=== PATIENT | female | born 1945 | race Caucasian/White ===

== ENCOUNTER 2019-01-31 07:55 | Outpatient (RCR) | payer MEDICARE, SELFPAY | END 2019-02-22 00:01 | LOC: LAB 07:55 | PROVIDERS: Family Provider Family Medicine; Visit Provider Family Medicine | DX: I82.409 Acute embolism and thrombosis of unspecified deep veins of unspecified lower extremity (principal); Z79.01 Long term (current) use of anticoagulants | CPT/HCPCS: 85610 ==

== ENCOUNTER 2019-02-28 08:30 | Outpatient (CLI) | payer MEDICARE, SELFPAY ==
[2019-02-28 09:25] LABS: INR 3.29 (0.8-1.2)
== END 2019-02-28 08:31 | disposition home or self-care (01) ==
LOC: LAB 08:36
PROVIDERS: Family Provider Family Medicine; PCP Family Medicine; Visit Provider Family Medicine
DX: I82.4Z9 Acute embolism and thrombosis of unspecified deep veins of unspecified distal lower extremity (principal)
CPT/HCPCS: 85610

== ENCOUNTER 2019-03-07 08:15 | Outpatient (CLI) | payer MEDICARE, SELFPAY ==
[2019-03-07 09:08] LABS: INR 2.79 (0.8-1.2)
== END 2019-03-07 08:16 | disposition home or self-care (01) ==
LOC: LAB 08:16
PROVIDERS: Family Provider Family Medicine; PCP Family Medicine; Visit Provider Family Medicine
DX: I82.4Z9 Acute embolism and thrombosis of unspecified deep veins of unspecified distal lower extremity (principal)
CPT/HCPCS: 85610

== ENCOUNTER 2019-03-21 08:21 | Outpatient (CLI) | payer MEDICARE, SELFPAY ==
[2019-03-21 08:58] LABS: INR 3.34 (0.8-1.2)
== END 2019-03-21 08:22 | disposition home or self-care (01) ==
LOC: LAB 08:23
PROVIDERS: Family Provider Family Medicine; PCP Family Medicine; Visit Provider Family Medicine
DX: I82.409 Acute embolism and thrombosis of unspecified deep veins of unspecified lower extremity (principal)
CPT/HCPCS: 85610

== ENCOUNTER 2019-03-28 07:50 | Outpatient (CLI) | payer MEDICARE, SELFPAY ==
[2019-03-28 09:03] LABS: INR 1.86 (0.8-1.2)
== END 2019-03-28 07:51 | disposition home or self-care (01) ==
LOC: LAB 07:52
PROVIDERS: Family Provider Family Medicine; PCP Family Medicine; Visit Provider Family Medicine
DX: I82.409 Acute embolism and thrombosis of unspecified deep veins of unspecified lower extremity (principal)
CPT/HCPCS: 85610

== ENCOUNTER 2019-04-11 08:08 | Outpatient (RCR) | payer MEDICARE, SELFPAY ==
[2019-04-04 09:45] LABS: INR 1.96 (0.8-1.2)
[2019-04-11 08:42] LABS: INR 2.41 (0.8-1.2)
== END 2019-04-23 23:59 | disposition home or self-care (01) ==
LOC: LAB 08:08
PROVIDERS: Family Provider Family Medicine; PCP Family Medicine; Visit Provider Family Medicine
DX: I82.409 Acute embolism and thrombosis of unspecified deep veins of unspecified lower extremity (principal)
CPT/HCPCS: 36415; 85610

== ENCOUNTER 2019-04-25 08:14 | Outpatient (CLI) | payer MEDICARE, SELFPAY ==
[2019-04-25 09:31] LABS: INR 2.75 (0.8-1.2)
== END 2019-04-25 08:15 | disposition home or self-care (01) ==
LOC: LAB 08:19
PROVIDERS: Family Provider Family Medicine; PCP Family Medicine; Visit Provider Family Medicine
DX: I82.409 Acute embolism and thrombosis of unspecified deep veins of unspecified lower extremity (principal)
CPT/HCPCS: 36415; 85610

== ENCOUNTER 2019-05-16 08:07 | Outpatient (RCR) | payer MEDICARE, SELFPAY | END 2019-05-24 23:59 | disposition home or self-care (01) | LOC: LAB 08:07 | PROVIDERS: Family Provider Family Medicine; PCP Family Medicine; Visit Provider Family Medicine | DX: I82.409 Acute embolism and thrombosis of unspecified deep veins of unspecified lower extremity (principal); Z79.01 Long term (current) use of anticoagulants | CPT/HCPCS: 85610 ==

== ENCOUNTER 2019-06-20 08:08 | Outpatient (RCR) | payer MEDICARE, SELFPAY | END 2019-06-23 23:59 | disposition home or self-care (01) | LOC: LAB 08:08 | PROVIDERS: Family Provider Family Medicine; PCP Family Medicine; Visit Provider Family Medicine | DX: I82.409 Acute embolism and thrombosis of unspecified deep veins of unspecified lower extremity (principal); Z79.01 Long term (current) use of anticoagulants | CPT/HCPCS: 36415; 85610 ==

== ENCOUNTER 2019-07-19 07:45 | Outpatient (RCR) | payer MEDICARE, SELFPAY ==
[2019-07-19 08:36] LABS: INR 2.33 (0.8-1.2)
== END 2019-07-24 23:59 | disposition home or self-care (01) ==
LOC: LAB 07:45
PROVIDERS: PCP Family Medicine; Visit Provider Family Medicine
DX: I82.409 Acute embolism and thrombosis of unspecified deep veins of unspecified lower extremity (principal); Z79.01 Long term (current) use of anticoagulants
CPT/HCPCS: 36415; 85610

== ENCOUNTER 2019-08-15 08:13 | Outpatient (RCR) | payer MEDICARE, SELFPAY ==
[2019-08-15 09:05] LABS: INR 2.64 (0.8-1.2)
== END 2019-08-23 23:59 | disposition home or self-care (01) ==
LOC: LAB 08:13
PROVIDERS: PCP Family Medicine; Visit Provider Family Medicine
DX: I82.409 Acute embolism and thrombosis of unspecified deep veins of unspecified lower extremity (principal); Z79.01 Long term (current) use of anticoagulants
CPT/HCPCS: 85610

== ENCOUNTER 2019-09-19 07:58 | Outpatient (RCR) | payer MEDICARE, SELFPAY ==
[2019-09-12 11:21] LABS: INR 6.31 (0.8-1.2)
[2019-09-15 08:54] LABS: INR 3.36 (0.8-1.2)
[2019-09-19 09:06] LABS: INR 1.55 (0.8-1.2)
== END 2019-09-23 23:59 | disposition home or self-care (01) ==
LOC: LAB 07:58
PROVIDERS: PCP Family Medicine; Visit Provider Family Medicine
DX: I82.409 Acute embolism and thrombosis of unspecified deep veins of unspecified lower extremity (principal)
CPT/HCPCS: 36415; 85610

== ENCOUNTER 2019-10-24 08:08 | Outpatient (RCR) | payer MEDICARE, SELFPAY ==
[2019-10-03 09:09] LABS: INR 1.28 (0.8-1.2)
[2019-10-24 08:31] LABS: Hematocrit 40.6 % (37.0-47.0); Mean Corpuscular Hemoglobin 31.1 pg (28.0-34.0); Mean Corpuscular Volume 97.1 fL (81-99); Mean Platelet Volume 11.2 fL (7.4-10.4); Platelet Count 285 10^3/cmm (130-400); Red Blood Count 4.18 10^6/uL (4.1-5.3); Red Cell Distribution Width 13.2 % (12.1-15.1); White Blood Count 8.2 10^3/uL (4.0-10.0)
[2019-10-24 08:41] LABS: Absolute Eosinophils 0.2 10^3/cmm (0.0-0.7); Absolute Segmented Neutrophil 5.2 10/cmm (1.6-7.1); Band Neutrophils Absolute 0.1 10^3/cmm (0.0-1.2); Eosinophils 3 %; INR 2.16 (0.8-1.2); Lymphocytes 26 %; Monocytes Absolute 0.6 10^3/cmm (0.1-0.6); Segmented Neutrophils 63 %; Total Cells Counted 100 (0-100)
[2019-10-24 08:43] LABS: Absolute Neutrophil 5.2 10^3/cmm (1.4-6.5); Platelet Estimate Normal (Normal)
[2019-10-24 08:56] LABS: Alanine Aminotransferase 14 U/L (0-33); Albumin Level 3.5 g/dL (3.5-5.2); Alkaline Phosphatase 81 IU/L (35-105); Aspartate Amino Transferase 9 U/L (0-32); Blood Urea Nitrogen 23 mg/dL (8-23); Calcium 9.4 mg/dL (8.5-10.5); Carbon Dioxide 27 mmol/L (22-29); Chloride 107 mmol/L (98-107); Chol HDL Ratio 3.22 mg/dL (0.0-4.40); Cholesterol 148 mg/dL (0-200); Glucose 98 mg/dL (65-115); HDL Cholesterol 46 mg/dL (60-100); LDL Cholesterol Calculated 66 mg/dL (50-129); Osmolality Calculated 291 mOsm/kg (285-295); Sodium 142 mmol/L (136-145); Thyroid Stimulating Hormone 2.03 uIU/mL (0.27-4.20); Total Bilirubin 0.5 mg/dL (0.15-1.2); Total Protein 6.5 g/dL (6.6-8.7); Triglycerides 182 mg/dL (0-150); VLDL Cholestrol Calculation 36 mg/dL (0-30)
== END 2019-10-24 23:59 | disposition home or self-care (01) ==
LOC: LAB 08:08
PROVIDERS: PCP Family Medicine; Visit Provider Family Medicine
DX: I82.409 Acute embolism and thrombosis of unspecified deep veins of unspecified lower extremity (principal); I10 Essential (primary) hypertension
CPT/HCPCS: 36415; 80053; 80061; 84443; 85007; 85027; 85610

== ENCOUNTER 2019-11-08 07:59 | Outpatient (RCR) | payer MEDICARE, SELFPAY ==
[2019-11-01 09:42] LABS: INR 1.51 (0.8-1.2)
== END 2019-11-23 23:59 | disposition home or self-care (01) ==
LOC: LAB 07:59
PROVIDERS: PCP Family Medicine; Visit Provider Family Medicine
DX: I82.409 Acute embolism and thrombosis of unspecified deep veins of unspecified lower extremity (principal)
CPT/HCPCS: 85610

== ENCOUNTER 2019-12-20 07:53 | Outpatient (RCR) | payer MEDICARE, SELFPAY ==
[2019-11-28 12:11] LABS: INR 1.87 (0.8-1.2)
[2019-12-13 08:54] LABS: INR 1.64 (0.8-1.2)
[2019-12-20 08:31] LABS: INR 1.91 (0.8-1.2)
== END 2019-12-24 23:59 | disposition home or self-care (01) ==
LOC: LAB 07:53
PROVIDERS: PCP Family Medicine; Visit Provider Family Medicine
DX: Z79.01 Long term (current) use of anticoagulants (principal); D68.51 Activated protein C resistance; Z86.718 Personal history of other venous thrombosis and embolism
CPT/HCPCS: 36415; 85610

== ENCOUNTER 2020-01-17 08:00 | Outpatient (RCR) | payer MEDICARE, SELFPAY ==
[2019-12-27 09:04] LABS: INR 2.24 (0.8-1.2)
[2020-01-03 08:57] LABS: INR 1.77 (0.8-1.2)
[2020-01-10 09:26] LABS: INR 2.35 (0.8-1.2)
[2020-01-17 08:51] LABS: INR 2.36 (0.8-1.2)
== END 2020-01-23 23:59 | disposition home or self-care (01) ==
LOC: LAB 08:00
PROVIDERS: PCP Family Medicine; Visit Provider Family Medicine
DX: D68.51 Activated protein C resistance (principal); Z79.01 Long term (current) use of anticoagulants; Z86.718 Personal history of other venous thrombosis and embolism
CPT/HCPCS: 36415; 85610

== ENCOUNTER 2020-02-07 08:10 | Outpatient (RCR) | payer MEDICARE, SELFPAY ==
[2020-02-07 08:47] LABS: INR 2.37 (0.8-1.2)
== END 2020-02-23 23:59 | disposition home or self-care (01) ==
LOC: LAB 08:10
PROVIDERS: PCP Family Medicine; Visit Provider Family Medicine
DX: D68.51 Activated protein C resistance (principal); Z86.718 Personal history of other venous thrombosis and embolism; Z79.01 Long term (current) use of anticoagulants
CPT/HCPCS: 36415; 85610

== ENCOUNTER 2020-03-06 08:07 | Outpatient (RCR) | payer MEDICARE, SELFPAY ==
[2020-03-06 09:25] LABS: INR 2.51 (0.8-1.2)
== END 2020-03-25 23:59 | disposition home or self-care (01) ==
LOC: LAB 08:07
PROVIDERS: PCP Nurse Practitioner Family; Visit Provider Family Medicine
DX: D68.51 Activated protein C resistance (principal); Z79.01 Long term (current) use of anticoagulants; Z86.718 Personal history of other venous thrombosis and embolism
CPT/HCPCS: 85610

== ENCOUNTER 2020-04-02 08:54 | Outpatient (RCR) | payer MEDICARE, SELFPAY ==
[2020-04-02 10:07] LABS: INR 3.09 (0.8-1.2)
== END 2020-04-22 23:59 | disposition home or self-care (01) ==
LOC: LAB 08:54
PROVIDERS: PCP Nurse Practitioner Family; Visit Provider Family Medicine
DX: D68.51 Activated protein C resistance (principal); Z79.01 Long term (current) use of anticoagulants; Z86.718 Personal history of other venous thrombosis and embolism
CPT/HCPCS: 85610

== ENCOUNTER 2020-05-22 08:00 | Outpatient (RCR) | payer MEDICARE, SELFPAY ==
[2020-04-23 08:51] LABS: Basophils % 0.6 %; Eosinophils # 0.1 10^3/uL (0.0-0.8); Eosinophils % 2.1 %; Hematocrit 42.4 % (37.0-47.0); Hemoglobin 13.6 g/dL (11.5-15.3); Lymphocytes # 2.3 10^3/uL (0.8-4.8); Lymphocytes % 33.1 %; Mean Corpuscular HGB Conc 32.1 g/dL (30.0-36.0); Mean Corpuscular Hemoglobin 30.6 pg (28.0-34.0); Mean Corpuscular Volume 95.3 fL (81-99); Mean Platelet Volume 12.1 fL (7.4-10.4); Monocytes # 0.5 10^3/uL (0.2-0.9); Monocytes % 7.2 %; Neutrophils # 3.87 10^3/uL (1.8-7.7); Neutrophils % 56.9 %; Nucleated Red Blood Cells % 0 %; Platelet Count 246 10^3/cmm (130-400); Red Blood Count 4.45 10^6/uL (4.1-5.3); Red Cell Distribution Width 13.2 % (12.1-15.1); White Blood Count 6.8 10^3/uL (4.0-10.0)
[2020-04-23 09:10] LABS: INR 2.76 (0.8-1.2)
[2020-04-23 09:29] LABS: Anion Gap 11.9 (5-19); Blood Urea Nitrogen 21 mg/dL (8-23); Calcium 9.5 mg/dL (8.5-10.5); Carbon Dioxide 28 mmol/L (22-29); Chloride 106 mmol/L (98-107); Cholesterol 152 mg/dL (0-200); Glucose 102 mg/dL (65-115); HDL Cholesterol 38 mg/dL (60-100); LDL Cholesterol Calculated 63 mg/dL (50-129); LDL HDL Ratio 1.66 RATIO (0.00-3.22); Osmolality Calculated 297 mOsm/kg (285-295); Potassium 3.9 mmol/L (3.5-5.1); Sodium 142 mmol/L (136-145); Thyroid Stimulating Hormone 2.77 uIU/mL (0.27-4.20); Triglycerides 253 mg/dL (0-150)
[2020-05-22 09:26] LABS: INR 3.26 (0.8-1.2)
== END 2020-05-23 23:59 | disposition home or self-care (01) ==
LOC: LAB 08:00
PROVIDERS: PCP Nurse Practitioner Family; Visit Provider Family Medicine
DX: D68.51 Activated protein C resistance (principal); I10 Essential (primary) hypertension; Z86.718 Personal history of other venous thrombosis and embolism; Z79.01 Long term (current) use of anticoagulants
CPT/HCPCS: 36415; 80048; 80061; 84443; 85025; 85610

== ENCOUNTER 2020-06-06 08:01 | Outpatient (RCR) | payer MEDICARE, SELFPAY ==
[2020-06-06 09:01] LABS: INR 2.26 (0.8-1.2)
== END 2020-06-22 23:59 | disposition home or self-care (01) ==
LOC: LAB 08:01
PROVIDERS: PCP Nurse Practitioner Family; Visit Provider Family Medicine
DX: D68.51 Activated protein C resistance (principal); Z86.718 Personal history of other venous thrombosis and embolism; Z79.01 Long term (current) use of anticoagulants
CPT/HCPCS: 85610

== ENCOUNTER 2020-06-08 07:21 | Outpatient (CLI) | payer MEDICARE, SELFPAY ==
--- NOTE | 2020-06-08 07:26 | US_ITS ---
WS: [id number] ULTRASOUND SOFT TISSUES RIGHT axilla HISTORY: AXILLARY LUMP/LOCALIZED SWELLING,MASS LUMP UPPER LIMB COMPARISON: None available. TECHNIQUE: 2-D and color Doppler imaging is submitted. No mass or lymph nodes are noted within the RIGHT axilla as directed by the patient. The area of conc yong is near the posterior proximal humerus. US/US soft tissue/extremity [id number] IMPRESSION: Negative RIGHT axillary ultrasound.
== END 2020-06-08 07:22 | disposition home or self-care (01) ==
LOC: RAD 07:24
PROVIDERS: PCP Nurse Practitioner Family; Visit Provider Nurse Practitioner Family
DX: R22.30 Localized swelling, mass and lump, unspecified upper limb (principal)
CPT/HCPCS: 76882

== ENCOUNTER 2020-07-04 08:07 | Outpatient (RCR) | payer MEDICARE, SELFPAY ==
[2020-07-04 09:05] LABS: INR 2.13 (0.8-1.2)
== END 2020-07-23 23:59 | disposition home or self-care (01) ==
LOC: LAB 08:07
PROVIDERS: PCP Nurse Practitioner Family; Visit Provider Family Medicine
DX: D68.51 Activated protein C resistance (principal); I10 Essential (primary) hypertension; Z86.718 Personal history of other venous thrombosis and embolism; Z79.01 Long term (current) use of anticoagulants
CPT/HCPCS: 36415; 85610

== ENCOUNTER 2020-08-01 08:00 | Outpatient (RCR) | payer MEDICARE, SELFPAY ==
[2020-08-01 08:59] LABS: INR 2.11 (0.8-1.2)
== END 2020-08-22 23:59 | disposition home or self-care (01) ==
LOC: LAB 08:00
PROVIDERS: PCP Nurse Practitioner Family; Visit Provider Family Medicine
DX: I82.409 Acute embolism and thrombosis of unspecified deep veins of unspecified lower extremity (principal); Z79.01 Long term (current) use of anticoagulants
CPT/HCPCS: 36415; 85610

== ENCOUNTER 2020-08-29 07:57 | Outpatient (RCR) | payer MEDICARE, SELFPAY ==
[2020-08-29 08:34] LABS: INR 2.59 (0.8-1.2)
== END 2020-09-22 23:59 | disposition home or self-care (01) ==
LOC: LAB 07:57
PROVIDERS: PCP Nurse Practitioner Family; Visit Provider Family Medicine
DX: I82.409 Acute embolism and thrombosis of unspecified deep veins of unspecified lower extremity (principal); Z79.01 Long term (current) use of anticoagulants
CPT/HCPCS: 36415; 85610

== ENCOUNTER 2020-09-26 08:00 | Outpatient (RCR) | payer MEDICARE, SELFPAY ==
[2020-09-26 09:13] LABS: INR 2.38 (0.8-1.2)
== END 2020-10-23 23:59 | disposition home or self-care (01) ==
LOC: LAB 08:00
PROVIDERS: PCP Nurse Practitioner Family; Visit Provider Family Medicine
DX: I82.409 Acute embolism and thrombosis of unspecified deep veins of unspecified lower extremity (principal)
CPT/HCPCS: 36415; 85610

== ENCOUNTER 2020-11-21 08:02 | Outpatient (RCR) | payer MEDICARE, SELFPAY ==
[2020-10-24 09:15] LABS: INR 2.75 (0.8-1.2)
[2020-11-21 09:03] LABS: INR 2.87 (0.8-1.2)
== END 2020-11-22 23:59 | disposition home or self-care (01) ==
LOC: LAB 08:02
PROVIDERS: PCP Nurse Practitioner Family; Visit Provider Family Medicine
DX: I82.409 Acute embolism and thrombosis of unspecified deep veins of unspecified lower extremity (principal); Z79.01 Long term (current) use of anticoagulants; D68.51 Activated protein C resistance; Z86.718 Personal history of other venous thrombosis and embolism
CPT/HCPCS: 36415; 85610

== ENCOUNTER 2020-12-18 07:59 | Outpatient (RCR) | payer MEDICARE, SELFPAY ==
[2020-12-18 08:43] LABS: INR 2.81 (0.8-1.2)
== END 2020-12-23 23:59 | disposition home or self-care (01) ==
LOC: LAB 07:59
PROVIDERS: PCP Nurse Practitioner Family; Visit Provider Family Medicine
DX: I82.409 Acute embolism and thrombosis of unspecified deep veins of unspecified lower extremity (principal); D68.51 Activated protein C resistance; I10 Essential (primary) hypertension; Z79.01 Long term (current) use of anticoagulants; Z86.718 Personal history of other venous thrombosis and embolism
CPT/HCPCS: 36415; 85610

== ENCOUNTER 2021-01-16 07:39 | Outpatient (RCR) | payer MEDICARE, SELFPAY ==
[2021-01-16 08:22] LABS: Basophils % 0.3 %; Eosinophils # 0.2 10^3/uL (0.0-0.8); Eosinophils % 2.4 %; Hematocrit 40.8 % (37.0-47.0); Hemoglobin 13.4 g/dL (11.5-15.3); Lymphocytes # 2.2 10^3/uL (0.8-4.8); Lymphocytes % 33.7 %; Mean Corpuscular HGB Conc 32.8 g/dL (30.0-36.0); Mean Corpuscular Hemoglobin 31.8 pg (28.0-34.0); Mean Corpuscular Volume 96.9 fl (81-99); Mean Platelet Volume 11.5 fL (7.4-10.4); Monocytes # 0.5 10^3/uL (0.2-0.9); Monocytes % 6.8 %; Neutrophils # 3.71 10^3/uL (1.8-7.7); Neutrophils % 56.5 %; Nucleated Red Blood Cells % 0 %; Platelet Count 260 10^3/cmm (130-400); Red Blood Count 4.21 10^6/uL (4.1-5.3); Red Cell Distribution Width 12.8 % (12.1-15.1); White Blood Count 6.6 10^3/uL (4.0-10.0)
[2021-01-16 08:50] LABS: INR 2.99 (0.8-1.2)
[2021-01-16 09:20] LABS: Chol HDL Ratio 4.33 mg/dL (0.0-4.40); Cholesterol 173 mg/dL (0-200); HDL Cholesterol 40 mg/dL (60-100); LDL Cholesterol Calculated 83 mg/dL (50-129); LDL HDL Ratio 2.08 RATIO (0.00-3.22); Thyroid Stimulating Hormone 2.71 uIU/mL (0.27-4.20); Triglycerides 250 mg/dL (0-150)
[2021-01-16 14:14] LABS: Alanine Aminotransferase 10 U/L (0-33); Alkaline Phosphatase 84 IU/L (35-105); Anion Gap 14.8 (5-19); Aspartate Amino Transferase 10 U/L (0-32); Blood Urea Nitrogen 24 mg/dL (8-23); Calcium 9.1 mg/dL (8.5-10.5); Carbon Dioxide 25 mmol/L (22-29); Chloride 103 mmol/L (98-107); Glucose 115 mg/dL (65-115); Osmolality Calculated 293 mOsm/kg (285-295); Potassium 3.8 mmol/L (3.5-5.1); Sodium 139 mmol/L (136-145); Total Bilirubin 0.3 mg/dL (0.15-1.2)
[2021-01-16 14:47] LABS: Estmated Average Glucose 131; Hemoglobin A1C 6.2 % (4.0-6.0)
== END 2021-01-22 23:59 | disposition home or self-care (01) ==
LOC: LAB 07:39
PROVIDERS: PCP Nurse Practitioner Family; Visit Provider Family Medicine
DX: I82.409 Acute embolism and thrombosis of unspecified deep veins of unspecified lower extremity (principal); D68.51 Activated protein C resistance; I10 Essential (primary) hypertension; Z79.01 Long term (current) use of anticoagulants; Z86.718 Personal history of other venous thrombosis and embolism; Z79.899 Other long term (current) drug therapy
CPT/HCPCS: 36415; 80053; 80061; 83036; 84443; 85025; 85610

== ENCOUNTER 2021-02-18 09:12 | Outpatient (CLI) | payer MEDICARE, SELFPAY | END 2021-02-18 09:13 | disposition home or self-care (01) | LOC: LAB 09:21 | PROVIDERS: PCP Nurse Practitioner Family; Visit Provider Nurse Practitioner Family | DX: Z86.718 Personal history of other venous thrombosis and embolism (principal); D68.51 Activated protein C resistance; Z79.01 Long term (current) use of anticoagulants | CPT/HCPCS: 36415; 85610 ==

== ENCOUNTER 2021-02-27 06:00 | Outpatient (RCR) | payer MEDICARE, SELFPAY | END 2021-03-25 23:59 | disposition home or self-care (01) | LOC: SPT 06:00 | PROVIDERS: PCP Nurse Practitioner Family; Referring Provider Nurse Practitioner Family; Visit Provider Nurse Practitioner Family | DX: S89.92XD Unspecified injury of left lower leg, subsequent encounter (principal); X58.XXXD Exposure to other specified factors, subsequent encounter | CPT/HCPCS: 97110; 97161 ==

== ENCOUNTER 2021-03-18 07:53 | Outpatient (CLI) | payer MEDICARE, SELFPAY ==
[2021-03-18 08:30] LABS: INR 2.51 (0.8-1.2)
== END 2021-03-18 07:54 | disposition home or self-care (01) ==
PROVIDERS: PCP Nurse Practitioner Family; Visit Provider Family Medicine
DX: Z86.718 Personal history of other venous thrombosis and embolism (principal); D68.51 Activated protein C resistance; Z79.01 Long term (current) use of anticoagulants
CPT/HCPCS: 36415; 85610

== ENCOUNTER 2021-03-26 06:00 | Outpatient (RCR) | payer MEDICARE, SELFPAY | END 2021-04-22 23:59 | disposition home or self-care (01) | LOC: SPT 06:00 | PROVIDERS: PCP Nurse Practitioner Family; Referring Provider Nurse Practitioner Family; Visit Provider Nurse Practitioner Family | DX: S89.92XD Unspecified injury of left lower leg, subsequent encounter (principal); X58.XXXD Exposure to other specified factors, subsequent encounter | CPT/HCPCS: 97110 ==

== ENCOUNTER 2021-04-15 08:17 | Outpatient (CLI) | payer MEDICARE, SELFPAY ==
[2021-04-15 09:03] LABS: INR 3.48 (0.8-1.2)
== END 2021-04-15 08:18 | disposition home or self-care (01) ==
LOC: LAB 08:24
PROVIDERS: PCP Nurse Practitioner Family; Visit Provider Nurse Practitioner Family
DX: Z86.718 Personal history of other venous thrombosis and embolism (principal); D68.51 Activated protein C resistance; Z79.01 Long term (current) use of anticoagulants
CPT/HCPCS: 36415; 85610

== ENCOUNTER 2021-04-23 06:00 | Outpatient (RCR) | payer MEDICARE, SELFPAY | END 2021-04-24 23:59 | disposition home or self-care (01) | LOC: SPT 06:00 | PROVIDERS: PCP Nurse Practitioner Family; Referring Provider Nurse Practitioner Family; Visit Provider Nurse Practitioner Family | DX: S89.92XD Unspecified injury of left lower leg, subsequent encounter (principal); X58.XXXD Exposure to other specified factors, subsequent encounter | CPT/HCPCS: 97110 ==

== ENCOUNTER 2021-04-29 08:26 | Outpatient (CLI) | payer MEDICARE, SELFPAY ==
[2021-04-29 09:14] LABS: INR 2.37 (0.8-1.2)
== END 2021-04-29 08:27 | disposition home or self-care (01) ==
LOC: LAB 08:29
PROVIDERS: PCP Nurse Practitioner Family; Visit Provider Family Medicine
DX: Z86.718 Personal history of other venous thrombosis and embolism (principal); D68.51 Activated protein C resistance; Z79.01 Long term (current) use of anticoagulants
CPT/HCPCS: 85610

== ENCOUNTER 2021-05-06 08:02 | Outpatient (CLI) | payer MEDICARE, SELFPAY | END 2021-05-06 08:03 | disposition home or self-care (01) | PROVIDERS: PCP Nurse Practitioner Family; Visit Provider Nurse Practitioner Family | DX: Z86.718 Personal history of other venous thrombosis and embolism (principal); D68.51 Activated protein C resistance; Z79.01 Long term (current) use of anticoagulants | CPT/HCPCS: 85610 ==

== ENCOUNTER 2021-05-20 07:56 | Outpatient (CLI) | payer MEDICARE, SELFPAY ==
[2021-05-20 08:44] LABS: INR 2.31 (0.8-1.2)
== END 2021-05-20 07:57 | disposition home or self-care (01) ==
LOC: LAB 07:58
PROVIDERS: PCP Nurse Practitioner Family; Visit Provider Family Medicine
DX: Z86.718 Personal history of other venous thrombosis and embolism (principal); D68.51 Activated protein C resistance; Z79.01 Long term (current) use of anticoagulants
CPT/HCPCS: 85610

== ENCOUNTER 2021-06-03 07:41 | Outpatient (CLI) | payer MEDICARE, SELFPAY ==
[2021-06-03 09:45] LABS: INR 2.65 (0.8-1.2)
== END 2021-06-03 07:42 | disposition home or self-care (01) ==
PROVIDERS: PCP Nurse Practitioner Family; Visit Provider Family Medicine
DX: Z86.718 Personal history of other venous thrombosis and embolism (principal); D68.51 Activated protein C resistance; Z79.01 Long term (current) use of anticoagulants
CPT/HCPCS: 36415; 85610

== ENCOUNTER 2021-07-01 07:54 | Outpatient (CLI) | payer MEDICARE, SELFPAY | END 2021-07-01 07:55 | disposition home or self-care (01) | PROVIDERS: PCP Nurse Practitioner Family; Visit Provider Family Medicine | DX: Z86.718 Personal history of other venous thrombosis and embolism (principal); D68.51 Activated protein C resistance; Z79.01 Long term (current) use of anticoagulants | CPT/HCPCS: 36415; 85610 ==

== ENCOUNTER 2021-07-24 14:03 | Outpatient (CLI) | payer MEDICARE, SELFPAY ==
--- NOTE | 2021-07-24 14:12 | CT_ITS ---
WS: [id number] CTA HEAD AND NECK TECHNIQUE: Contrast enhanced CTA of the head and neck with coronal and sagittal reformatted images an d maximum intensity projection (MIP) images. NASCET criteria utilized. CLINICAL INFORMATION: CENTRAL RETINAL ARTERY OCCLUSION COMPARISON: None. DLP: 485.[address] scans at [facility] use at least one of these dose optimization techniques: automated e xposure control; mA and/or kV adjustment per patient size (includes targeted exams where dose is matc hed to clinical indication); or iterative reconstruction. FINDINGS: RIGHT: RIGHT common carotid artery is patent. No significant RIGHT ICA stenosis. ICA is patent to the skull base. Mild RIGHT carotid bulb calcification. LEFT: LEFT common carotid artery is patent. No significant LEFT ICA stenosis. LEFT ICA is patent to t he skull base. Slight atelectasis in the lung apices. Tiny RIGHT thyroid nodule measuring 6 mm. Intracranial contents appear normal for age. Mastoid air cells are well aerated. Polypoid mucosal thi ckening LEFT maxillary sinus. Normal posterior nasopharynx. Normal parapharyngeal fat. Straightening of the normal cervical lordosis. Mild spondylitic changes. Normal visualized dural venous sinuses. INTRACRANIAL CTA: Both vertebral arteries are patent. Codominant vertebral arteries bilaterally. Proximal basilar arter y is patent. Normal vascularity to the CASINO RUNNER territory bilaterally. Persistent RIGHT CASINO RUNNER. Both ICAs are patent at the skull base. Normal vascularity to the ABBIE and MCA territories bilaterally . No evidence of high-grade proximal stenosis or aneurysm. CT/CT angio headneck* [id number] IMPRESSION: 1. Less than 50% ICA stenosis bilaterally. Minimal calcification both carotid bulbs. 2. Codominant and patent vertebral arteries bilaterally. 3. Normal intracranial CTA. No evidence of high-grade proximal stenosis or ane urysm. 4. Persistent RIGHT CASINO RUNNER. 5. Tiny 6 mm RIGHT thyroid nodule.
[2021-07-24 15:01] LABS: Blood Urea Nitrogen 25 mg/dL (8-23)
[2021-07-24] MEDS: iohexol 300 mg/mL 100 mL Btl IV (15:26)
[2021-07-24 15:52] LABS: INR 3.24 (0.8-1.2)
== END 2021-07-24 14:04 | disposition home or self-care (01) ==
PROVIDERS: PCP Nurse Practitioner Family; Referring Provider Family Medicine; Visit Provider Ophthalmology
DX: D68.51 Activated protein C resistance (principal); H34.10 Central retinal artery occlusion, unspecified eye; E04.1 Nontoxic single thyroid nodule; Z79.01 Long term (current) use of anticoagulants; Z86.718 Personal history of other venous thrombosis and embolism
CPT/HCPCS: 70496; 70498; 82565; 84520; 85610

== ENCOUNTER 2021-08-07 08:28 | Outpatient (CLI) | payer MEDICARE, SELFPAY ==
[2021-08-07 09:15] LABS: INR 2.64 (0.8-1.2)
== END 2021-08-07 08:29 | disposition home or self-care (01) ==
LOC: LAB 08:32
PROVIDERS: PCP Nurse Practitioner Family; Visit Provider Family Medicine
DX: Z79.01 Long term (current) use of anticoagulants (principal); Z86.718 Personal history of other venous thrombosis and embolism; D68.51 Activated protein C resistance
CPT/HCPCS: 36415; 85610

== ENCOUNTER 2021-08-28 08:14 | Outpatient (CLI) | payer MEDICARE, SELFPAY ==
[2021-08-28 08:58] LABS: INR 2.72 (0.8-1.2)
== END 2021-08-28 08:15 | disposition home or self-care (01) ==
LOC: LAB 08:18
PROVIDERS: PCP Nurse Practitioner Family; Visit Provider Family Medicine
DX: D68.51 Activated protein C resistance (principal); Z86.718 Personal history of other venous thrombosis and embolism; Z79.01 Long term (current) use of anticoagulants
CPT/HCPCS: 36415; 85610

== ENCOUNTER 2021-09-04 08:42 | Outpatient (CLI) | payer MEDICARE, SELFPAY ==
[2021-09-04 09:12] LABS: INR 2.53 (0.8-1.2)
== END 2021-09-04 08:43 | disposition home or self-care (01) ==
LOC: LAB 08:46
PROVIDERS: PCP Nurse Practitioner Family; Visit Provider Family Medicine
DX: D68.51 Activated protein C resistance (principal); Z79.01 Long term (current) use of anticoagulants; Z86.718 Personal history of other venous thrombosis and embolism
CPT/HCPCS: 85610

== ENCOUNTER 2021-09-18 08:21 | Outpatient (CLI) | payer MEDICARE, SELFPAY ==
[2021-09-18 09:21] LABS: Partial Thromboplastin Time 41.3 SECONDS (23.9-36.7)
[2021-09-18 13:09] LABS: INR 2.39 (0.8-1.2)
== END 2021-09-18 08:22 | disposition home or self-care (01) ==
PROVIDERS: PCP Nurse Practitioner Family; Visit Provider Family Medicine
DX: Z86.718 Personal history of other venous thrombosis and embolism (principal); D68.51 Activated protein C resistance; Z79.01 Long term (current) use of anticoagulants
CPT/HCPCS: 36415; 85610; 85730

== ENCOUNTER 2021-10-17 08:00 | Outpatient (CLI) | payer MEDICARE, SELFPAY ==
[2021-10-17 09:28] LABS: INR 2.18 (0.8-1.2)
== END 2021-10-17 08:01 | disposition home or self-care (01) ==
LOC: LAB 08:02
PROVIDERS: PCP Nurse Practitioner Family; Visit Provider Nurse Practitioner Family
DX: Z86.718 Personal history of other venous thrombosis and embolism (principal); D68.51 Activated protein C resistance; Z79.01 Long term (current) use of anticoagulants
CPT/HCPCS: 36415; 85610

== ENCOUNTER 2021-10-24 08:00 | Outpatient (CLI) | payer MEDICARE, SELFPAY ==
[2021-10-24 09:56] LABS: INR 2.19 (0.8-1.2)
== END 2021-10-24 08:01 | disposition home or self-care (01) ==
LOC: LAB 08:02
PROVIDERS: PCP Nurse Practitioner Family; Visit Provider Family Medicine
DX: Z86.718 Personal history of other venous thrombosis and embolism (principal); D68.51 Activated protein C resistance; Z79.01 Long term (current) use of anticoagulants
CPT/HCPCS: 85610

== ENCOUNTER 2021-11-07 08:09 | Outpatient (CLI) | payer MEDICARE, SELFPAY ==
[2021-11-07 09:04] LABS: INR 2.52 (0.8-1.2)
== END 2021-11-07 08:10 | disposition home or self-care (01) ==
LOC: LAB 08:13
PROVIDERS: PCP Nurse Practitioner Family; Visit Provider Family Medicine
DX: Z86.718 Personal history of other venous thrombosis and embolism (principal); D68.51 Activated protein C resistance; Z79.01 Long term (current) use of anticoagulants
CPT/HCPCS: 85610

== ENCOUNTER 2021-11-21 07:57 | Outpatient (CLI) | payer MEDICARE, SELFPAY ==
[2021-11-21 08:45] LABS: INR 1.74 (0.8-1.2)
== END 2021-11-21 07:58 | disposition home or self-care (01) ==
PROVIDERS: PCP Nurse Practitioner Family; Visit Provider Nurse Practitioner Family
DX: Z86.718 Personal history of other venous thrombosis and embolism (principal); D68.51 Activated protein C resistance; Z79.01 Long term (current) use of anticoagulants
CPT/HCPCS: 36415; 85610

== ENCOUNTER 2021-11-28 07:41 | Outpatient (CLI) | payer MEDICARE, SELFPAY ==
[2021-11-28 08:16] LABS: INR 2.27 (0.8-1.2)
== END 2021-11-28 07:42 | disposition home or self-care (01) ==
PROVIDERS: PCP Nurse Practitioner Family; Visit Provider Family Medicine
DX: D68.51 Activated protein C resistance (principal); Z86.718 Personal history of other venous thrombosis and embolism; Z79.01 Long term (current) use of anticoagulants
CPT/HCPCS: 36415; 85610

== ENCOUNTER 2021-12-09 07:37 | Outpatient (RCR) | payer MEDICARE, SELFPAY ==
[2021-12-05 08:36] LABS: Estmated Average Glucose 123; Hemoglobin A1C 5.9 % (4.0-6.0)
[2021-12-05 08:42] LABS: Alanine Aminotransferase 10 U/L (0-33); Albumin Level 3.7 g/dL (3.5-5.2); Alkaline Phosphatase 91 U/L (35-105); Aspartate Amino Transferase 11 U/L (0-32); Blood Urea Nitrogen 13 mg/dL (8-23); Calcium 9.6 mg/dL (8.5-10.5); Carbon Dioxide 24 mmol/L (22-29); Chloride 105 mmol/L (98-107); Chol HDL Ratio 4.88 mg/dL (0.0-4.40); Cholesterol 166 mg/dL (0-200); Globulin 3.2 g/dL (1.3-4.6); Glucose 116 mg/dL (65-115); HDL Cholesterol 34 mg/dL (60-100); LDL Cholesterol Calculated 75 mg/dL (50-129); LDL HDL Ratio 2.21 RATIO (0.00-3.22); Osmolality Calculated 291 mOsm/kg (285-295); Sodium 140 mmol/L (136-145); Total Bilirubin 0.3 mg/dL (0.15-1.2); Total Protein 6.9 g/dL (6.6-8.7); Triglycerides 285 mg/dL (0-150)
[2021-12-09 08:14] LABS: INR 2.32 (0.8-1.2)
== END 2021-12-23 23:59 | disposition home or self-care (01) ==
LOC: LAB 07:37
PROVIDERS: PCP Nurse Practitioner Family; Visit Provider Family Medicine
DX: D68.51 Activated protein C resistance (principal); E78.5 Hyperlipidemia, unspecified; I10 Essential (primary) hypertension; R73.03 Prediabetes; Z79.01 Long term (current) use of anticoagulants; Z86.718 Personal history of other venous thrombosis and embolism
CPT/HCPCS: 36415; 80053; 80061; 83036; 85610

== ENCOUNTER 2021-12-30 07:55 | Outpatient (RCR) | payer MEDICARE, SELFPAY ==
[2021-12-30 08:56] LABS: INR 2.48 (0.8-1.2)
== END 2022-01-22 23:59 | disposition home or self-care (01) ==
LOC: LAB 07:55
PROVIDERS: PCP Nurse Practitioner Family; Visit Provider Family Medicine
DX: R73.03 Prediabetes (principal); E78.5 Hyperlipidemia, unspecified; Z79.01 Long term (current) use of anticoagulants
CPT/HCPCS: 85610

== ENCOUNTER 2022-01-20 08:03 | Outpatient (CLI) | payer MEDICARE, SELFPAY ==
[2022-01-20 09:03] LABS: INR 2.63 (0.8-1.2)
== END 2022-01-20 08:04 | disposition home or self-care (01) ==
PROVIDERS: PCP Nurse Practitioner Family; Visit Provider Family Medicine
DX: Z86.718 Personal history of other venous thrombosis and embolism (principal); D68.51 Activated protein C resistance; Z79.01 Long term (current) use of anticoagulants
CPT/HCPCS: 85610

== ENCOUNTER 2022-02-18 09:00 | Outpatient (CLI) | payer MEDICARE, SELFPAY | END 2022-02-18 09:01 | disposition home or self-care (01) | LOC: LAB 09:11 | PROVIDERS: PCP Nurse Practitioner Family; Visit Provider Family Medicine | DX: Z86.718 Personal history of other venous thrombosis and embolism (principal); D68.51 Activated protein C resistance; Z79.01 Long term (current) use of anticoagulants | CPT/HCPCS: 85610 ==

== ENCOUNTER 2022-02-25 07:56 | Outpatient (CLI) | payer MEDICARE, SELFPAY ==
[2022-02-25 08:46] LABS: INR 2.37 (0.8-1.2)
== END 2022-02-25 07:57 | disposition home or self-care (01) ==
LOC: LAB 08:04
PROVIDERS: PCP Nurse Practitioner Family; Visit Provider Nurse Practitioner Family
DX: Z86.718 Personal history of other venous thrombosis and embolism (principal); D68.51 Activated protein C resistance
CPT/HCPCS: 85610

== ENCOUNTER 2022-03-04 08:36 | Outpatient (CLI) | payer MEDICARE, SELFPAY ==
[2022-03-04 09:57] LABS: INR 2.22 (0.8-1.2)
== END 2022-03-04 08:37 | disposition home or self-care (01) ==
LOC: LAB 08:49
PROVIDERS: PCP Nurse Practitioner Family; Visit Provider Nurse Practitioner Family
DX: Z86.718 Personal history of other venous thrombosis and embolism (principal); D68.51 Activated protein C resistance
CPT/HCPCS: 36415; 85610

== ENCOUNTER 2022-03-17 07:57 | Outpatient (CLI) | payer MEDICARE, SELFPAY ==
[2022-03-17 09:03] LABS: INR 2.77 (0.8-1.2)
== END 2022-03-17 07:58 | disposition home or self-care (01) ==
PROVIDERS: PCP Nurse Practitioner Family; Visit Provider Nurse Practitioner Family
DX: Z86.718 Personal history of other venous thrombosis and embolism (principal); D68.51 Activated protein C resistance
CPT/HCPCS: 36415; 85610

== ENCOUNTER 2022-04-07 07:49 | Outpatient (CLI) | payer MEDICARE, SELFPAY ==
[2022-04-07 08:25] LABS: INR 2.81 (0.8-1.2)
== END 2022-04-07 07:50 | disposition home or self-care (01) ==
PROVIDERS: PCP Nurse Practitioner Family; Visit Provider Family Medicine
DX: Z86.718 Personal history of other venous thrombosis and embolism (principal); D68.51 Activated protein C resistance; Z79.01 Long term (current) use of anticoagulants
CPT/HCPCS: 36415; 85610

== ENCOUNTER 2022-05-05 08:07 | Outpatient (CLI) | payer MEDICARE, SELFPAY | END 2022-05-05 08:08 | disposition home or self-care (01) | LOC: LAB 08:13 | PROVIDERS: PCP Nurse Practitioner Family; Visit Provider Nurse Practitioner Family | DX: D68.51 Activated protein C resistance (principal); Z86.718 Personal history of other venous thrombosis and embolism | CPT/HCPCS: 36415; 85610 ==

== ENCOUNTER 2022-05-20 08:08 | Outpatient (CLI) | payer MEDICARE, SELFPAY ==
--- NOTE | 2022-05-20 08:41 | MM_ITS ---
WS: [id number] VIEWS: MLO and CC views both breasts. 3D digital tomosynthesis is also included in this exam. Comparison made with prior exam of 12/01/2013, 12/04/2014, 12/14/2015, 01/09/2017, 02/01/2018, 019.. Findings: There was no sign of mass, architectural distortion or suspicious calcification in either breast. The breasts are fatty. MM/[place] [id number] Impression: BI-RADS: 2-Benign FOLLOW-UP: 1 Year Follow-up This mammogram was also analyzed by the Computer Aided Detection System R2 Imag e Cable Rigger.
== END 2022-05-20 08:09 | disposition home or self-care (01) ==
LOC: RAD 08:12
PROVIDERS: PCP Nurse Practitioner Family; Visit Provider Nurse Practitioner Family
DX: Z12.31 Encounter for screening mammogram for malignant neoplasm of breast (principal); D68.51 Activated protein C resistance; Z86.718 Personal history of other venous thrombosis and embolism
CPT/HCPCS: 36415; 77063; 77067; 85610

== ENCOUNTER 2022-05-27 07:41 | Outpatient (CLI) | payer MEDICARE, SELFPAY ==
[2022-05-27 08:34] LABS: INR 1.89 (0.8-1.2)
== END 2022-05-27 07:42 | disposition home or self-care (01) ==
LOC: LAB 07:45
PROVIDERS: PCP Nurse Practitioner Family; Visit Provider Nurse Practitioner Family
DX: Z86.718 Personal history of other venous thrombosis and embolism (principal); D68.51 Activated protein C resistance
CPT/HCPCS: 36415; 85610

== ENCOUNTER 2022-06-03 08:02 | Outpatient (CLI) | payer MEDICARE, SELFPAY ==
[2022-06-03 08:43] LABS: INR 2.06 (0.8-1.2)
== END 2022-06-03 08:03 | disposition home or self-care (01) ==
LOC: LAB 08:08
PROVIDERS: PCP Nurse Practitioner Family; Visit Provider Nurse Practitioner Family
DX: Z86.718 Personal history of other venous thrombosis and embolism (principal); D68.51 Activated protein C resistance
CPT/HCPCS: 36415; 85610

== ENCOUNTER 2022-06-16 08:05 | Outpatient (CLI) | payer MEDICARE, SELFPAY ==
[2022-06-16 09:43] LABS: INR 1.69 (0.8-1.2)
== END 2022-06-16 08:06 | disposition home or self-care (01) ==
LOC: LAB 08:07
PROVIDERS: PCP Nurse Practitioner Family; Visit Provider Nurse Practitioner Family
DX: Z86.718 Personal history of other venous thrombosis and embolism (principal); D68.51 Activated protein C resistance
CPT/HCPCS: 36415; 85610

== ENCOUNTER 2022-06-30 08:01 | Outpatient (CLI) | payer MEDICARE, SELFPAY ==
[2022-06-30 08:46] LABS: INR 2.02 (0.8-1.2)
== END 2022-06-30 08:02 | disposition home or self-care (01) ==
LOC: LAB 08:05
PROVIDERS: PCP Nurse Practitioner Family; Visit Provider Nurse Practitioner Family
DX: Z86.718 Personal history of other venous thrombosis and embolism (principal); D68.51 Activated protein C resistance
CPT/HCPCS: 36415; 85610

== ENCOUNTER 2022-07-14 07:50 | Outpatient (CLI) | payer MEDICARE, SELFPAY ==
[2022-07-14 09:02] LABS: INR 1.91 (0.8-1.2)
== END 2022-07-14 07:51 | disposition home or self-care (01) ==
LOC: LAB 07:56
PROVIDERS: PCP Nurse Practitioner Family; Visit Provider Nurse Practitioner Family
DX: Z86.718 Personal history of other venous thrombosis and embolism (principal)
CPT/HCPCS: 36415; 85610

== ENCOUNTER 2022-07-22 07:53 | Outpatient (CLI) | payer MEDICARE, SELFPAY ==
[2022-07-22 08:37] LABS: INR 2.14 (0.8-1.2)
== END 2022-07-22 07:54 | disposition home or self-care (01) ==
PROVIDERS: PCP Nurse Practitioner Family; Visit Provider Nurse Practitioner Family
DX: D68.51 Activated protein C resistance (principal); Z86.718 Personal history of other venous thrombosis and embolism
CPT/HCPCS: 36415; 85610

== ENCOUNTER 2022-07-29 07:51 | Outpatient (CLI) | payer MEDICARE, SELFPAY ==
[2022-07-29 08:59] LABS: INR 2.19 (0.8-1.2)
== END 2022-07-29 07:52 | disposition home or self-care (01) ==
PROVIDERS: PCP Nurse Practitioner Family; Visit Provider Nurse Practitioner Family
DX: Z86.718 Personal history of other venous thrombosis and embolism (principal); D68.51 Activated protein C resistance
CPT/HCPCS: 36415; 85610

== ENCOUNTER 2022-08-12 08:01 | Outpatient (CLI) | payer MEDICARE, SELFPAY ==
[2022-08-12 08:52] LABS: INR 2.06 (0.8-1.2)
== END 2022-08-12 08:02 | disposition home or self-care (01) ==
LOC: LAB 08:04
PROVIDERS: PCP Nurse Practitioner Family; Visit Provider Nurse Practitioner Family
DX: Z86.718 Personal history of other venous thrombosis and embolism (principal)
CPT/HCPCS: 36415; 85610

== ENCOUNTER 2022-08-28 14:41 | Emergency (ER) | payer MEDICARE, SELFPAY ==
--- NOTE | 2022-08-28 14:42 | XRR_ITS ---
PROCEDURE INFORMATION: Exam: XR Left Hip Exam date and time: 08/28/2022 2:53 PM Age: 77 years old Clinical indication: Injury or trauma; Fall; Blunt trauma (contusions or hematomas); Left; Hip TECHNIQUE: Imaging protocol: Radiologic exam of the left hip. Views: 2 or 3 views hip with pelvis when performed. COMPARISON: US pelvic complete* [id number] 12/11/2015 8:47 AM FINDINGS: Bones/joints: Unremarkable. No acute fracture. Soft tissues: Unremarkable. XR/XR hip LT 2-3V wo/w pel* [id number] IMPRESSION: No acute findings.
[2022-08-28 15:10] VITALS: BP 146/86; PULSE 79; RESP 16; O2SAT 94; BMI 29.7
--- NOTE | 2022-08-28 15:17 | PC.NURSE ---
delay in triage due to xray taking pt from waiting room before triage nurse could see pt
--- NOTE | 2022-08-28 16:29 | W.ED.FALL ---
HPI - Fall General: Chief Complaint: Fall Stated Complaint: fall,lt hip pain Time Seen by Provider: 08/28/22 16:26 History of Present Illness: Patient is in today for left groin/hip pain. Patient reports that yesterday morning she was loading her groceries out of the car and stepped backwards tripping over a bump in the road. She reports that she fell directly down onto her bottom did not hit her head. She denies loss of consciousness. She reports that she was able to roll over onto her knees and get herself up and carry her groceries into the house. She states that her left groin has been hurting worse as the day has progressed. She reports that she is able to stand but she has sharp shooting pains and has a difficult time walking. She reports no pain when she is sitting still. Associated symptoms-after fall: Denies chest pain Review of Systems Const: Denies: fever(s) or chills Card: Denies: chest pain or palpitations Resp: Denies: dyspnea, productive cough or non-productive cough Musc: Reports: other (Pain to the left groin/hip) Physical Exam Const: COMMON NORMALS: no acute distress, patient oriented x3 and alert Resp: COMMON NORMALS: normal respiratory effort and No use of accessory muscles Extremity: NARRATIVE EXTREMITY EXAM: Patient is able to stand but has grabbing pains in her left groin with certain movements or when she is trying to ambulate. No obvious bony or soft tissue deformity is appreciated. Neuro: COMMON NORMALS: patient oriented x3 SENSORIUM/ORIENTATION: Yes alert Course Vital Signs: Vital signs: Vital Signs Pulse Rate 79 08/28/22 15:10 Respiratory Rate 16 08/28/22 15:10 Blood Pressure 146/86 08/28/22 15:10 Pulse Oximetry 94 08/28/22 15:10 Oxygen Delivery Me thod Room Air 08/28/22 15:10 MDM - Fall Medical Decision Making Consider groin strain, hip fracture, contusion X-rays left hip shows no acute osseous deformities Treat patient conservatively for groin strain. Educated her about conservative treatments at home. Patient takes Tylenol and states that the only thing she can take for pain. We discussed typical course of injury and healing. Follow-up with primary care provider as needed. Return to the ER for new or worsening symptoms. Lab Data Radiology Impressions Hip/Pelvis X-Ray 08/28/22 14:42 IMPRESSION: No acute findings. Discharge Plan Discharge Patient Disposition: Home Clinical Impression: Strain of left groin Condition: Stable Discharge Orders: Discharge ED (Routine); Ordered 08/28/22 Ordered By: Cierra Mason Referrals: Mis Mason FNP [Primary Care Provider] - Discharge Diet: Usual diet Discharge Activity: Increase activity as tolerated Patient Instructions: Groin Strain (ED) Activity Restrictions/Additional Instructions: We did not see any fracture on your x-ray of your hip. I recommend ice 3-4 times a day alternating with heat 3-4 times per day. Gentle stretches and massage. You may continue taking Tylenol as previously directed. Follow-up with primary care provider as needed. Return to ER for new or worsening symptoms Coding Level of Care Code ED Grinder And Plater for Gemma Wilkes
== END 2022-08-28 16:42 | disposition home or self-care (01) ==
PROVIDERS: Emergency Provider Nurse Practitioner Family; PCP Nurse Practitioner Family
DX: S39.011A Strain of muscle, fascia and tendon of abdomen, initial encounter (principal); W18.09XA Striking against other object with subsequent fall, initial encounter
CPT/HCPCS: 73502; 99283

== ENCOUNTER 2022-09-02 08:57 | Outpatient (CLI) | payer MEDICARE, SELFPAY ==
[2022-09-02 09:35] LABS: INR 2.99 (0.8-1.2)
== END 2022-09-02 08:58 | disposition home or self-care (01) ==
LOC: LAB 09:03
PROVIDERS: PCP Nurse Practitioner Family; Visit Provider Nurse Practitioner Family
DX: Z86.718 Personal history of other venous thrombosis and embolism (principal); D68.51 Activated protein C resistance
CPT/HCPCS: 36415; 85610

== ENCOUNTER 2022-09-09 09:58 | Outpatient (CLI) | payer MEDICARE, SELFPAY ==
[2022-09-09 10:53] LABS: Estmated Average Glucose 123; Hemoglobin A1C 5.9 % (4.0-6.0)
[2022-09-09 11:00] LABS: Alanine Aminotransferase 10 U/L (0-33); Albumin Level 3.8 g/dL (3.5-5.2); Alkaline Phosphatase 165 U/L (35-105); Anion Gap 15.2 (5-19); Aspartate Amino Transferase 11 U/L (0-32); Blood Urea Nitrogen 11 mg/dL (8-23); Calcium 9.4 mg/dL (8.5-10.5); Carbon Dioxide 25 mmol/L (22-29); Chloride 106 mmol/L (98-107); Chol HDL Ratio 3.18 mg/dL (0.0-4.40); Cholesterol 127 mg/dL (0-200); Globulin 2.6 g/dL (1.3-4.6); Glucose 92 mg/dL (65-115); HDL Cholesterol 40 mg/dL (60-100); LDL Cholesterol Calculated 54 mg/dL (50-129); LDL HDL Ratio 1.35 RATIO (0.00-3.22); Osmolality Calculated 293 mOsm/kg (285-295); Potassium 4.2 mmol/L (3.5-5.1); Sodium 142 mmol/L (136-145); Total Bilirubin 0.3 mg/dL (0.15-1.2); Total Protein 6.4 g/dL (6.6-8.7); Triglycerides 166 mg/dL (0-150)
== END 2022-09-09 09:59 | disposition home or self-care (01) ==
LOC: LAB 10:03
PROVIDERS: PCP Nurse Practitioner Family; Visit Provider Nurse Practitioner Family
DX: I10 Essential (primary) hypertension (principal); W19.XXXA Unspecified fall, initial encounter; H53.9 Unspecified visual disturbance
CPT/HCPCS: 36415; 80053; 80061; 83036

== ENCOUNTER 2022-09-30 07:45 | Outpatient (CLI) | payer MEDICARE, MEDICAID, SELFPAY ==
[2022-09-30 08:26] LABS: INR 2.41 (0.8-1.2)
== END 2022-09-30 07:46 | disposition home or self-care (01) ==
PROVIDERS: PCP Nurse Practitioner Family; Visit Provider Nurse Practitioner Family
DX: D68.51 Activated protein C resistance (principal)
CPT/HCPCS: 36415; 85610

== ENCOUNTER 2022-10-28 07:36 | Outpatient (CLI) | payer MEDICARE, MEDICAID, SELFPAY ==
[2022-10-28 08:18] LABS: INR 2.24 (0.8-1.2)
== END 2022-10-28 07:37 | disposition home or self-care (01) ==
PROVIDERS: PCP Nurse Practitioner Family; Visit Provider Nurse Practitioner Family
DX: Z86.718 Personal history of other venous thrombosis and embolism (principal); D68.51 Activated protein C resistance
CPT/HCPCS: 36415; 85610

== ENCOUNTER 2022-11-25 07:42 | Outpatient (CLI) | payer MEDICARE, SELFPAY ==
[2022-11-25 08:15] LABS: INR 2.13 (0.8-1.2)
== END 2022-11-25 07:43 | disposition home or self-care (01) ==
PROVIDERS: PCP Nurse Practitioner Family; Visit Provider Nurse Practitioner Family
DX: Z86.718 Personal history of other venous thrombosis and embolism (principal); D68.51 Activated protein C resistance
CPT/HCPCS: 36415; 85610

== ENCOUNTER 2022-12-23 08:06 | Outpatient (CLI) | payer MEDICARE, SELFPAY ==
[2022-12-23 08:55] LABS: INR 1.64 (0.8-1.2)
== END 2022-12-23 08:07 | disposition home or self-care (01) ==
LOC: LAB 08:10
PROVIDERS: PCP Nurse Practitioner Family; Visit Provider Nurse Practitioner Family
DX: Z86.718 Personal history of other venous thrombosis and embolism (principal); D68.51 Activated protein C resistance
CPT/HCPCS: 36415; 85610

== ENCOUNTER 2023-01-06 07:51 | Outpatient (CLI) | payer MEDICARE, SELFPAY ==
[2023-01-06 08:30] LABS: Alanine Aminotransferase < 5 U/L (0-33); Albumin Level 3.8 g/dL (3.5-5.2); Alkaline Phosphatase 129 U/L (35-105); Anion Gap 12.3 (5-19); Aspartate Amino Transferase 11 U/L (0-32); Blood Urea Nitrogen 23 mg/dL (8-23); Calcium 9.2 mg/dL (8.5-10.5); Carbon Dioxide 26 mmol/L (22-29); Chloride 109 mmol/L (98-107); Globulin 3.1 g/dL (1.3-4.6); Glucose 108 mg/dL (65-115); Osmolality Calculated 300 mOsm/kg (285-295); Potassium 4.3 mmol/L (3.5-5.1); Sodium 143 mmol/L (136-145); Total Bilirubin 0.4 mg/dL (0.15-1.2); Total Protein 6.9 g/dL (6.6-8.7)
[2023-01-06 08:44] LABS: Estmated Average Glucose 120; Hemoglobin A1C 5.8 % (4.0-6.0)
== END 2023-01-06 07:52 | disposition home or self-care (01) ==
PROVIDERS: PCP Nurse Practitioner Family; Visit Provider Nurse Practitioner Family
DX: I10 Essential (primary) hypertension (principal); Z86.718 Personal history of other venous thrombosis and embolism; R73.03 Prediabetes; D68.51 Activated protein C resistance
CPT/HCPCS: 36415; 80053; 83036; 85610

== ENCOUNTER 2023-01-21 07:56 | Outpatient (CLI) | payer MEDICARE, SELFPAY ==
[2023-01-21 08:27] LABS: INR 2.76 (0.8-1.2)
== END 2023-01-21 07:57 | disposition home or self-care (01) ==
LOC: LAB 08:00
PROVIDERS: PCP Nurse Practitioner Family; Visit Provider Nurse Practitioner Family
DX: Z86.718 Personal history of other venous thrombosis and embolism (principal)
CPT/HCPCS: 36415; 85610

== ENCOUNTER 2023-02-04 07:55 | Outpatient (CLI) | payer MEDICARE, SELFPAY ==
[2023-02-04 08:50] LABS: INR 2.65 (0.8-1.2)
== END 2023-02-04 07:56 | disposition home or self-care (01) ==
LOC: LAB 07:59
PROVIDERS: PCP Nurse Practitioner Family; Visit Provider Nurse Practitioner Family
DX: Z86.718 Personal history of other venous thrombosis and embolism (principal); D68.51 Activated protein C resistance
CPT/HCPCS: 36415; 85610

== ENCOUNTER 2023-02-17 08:46 | Outpatient (CLI) | payer MEDICARE, MEDICAID, SELFPAY ==
--- NOTE | 2023-02-17 08:51 | USCV_ITS ---
Taty Davenport Age: 78 Gender: F : 1945 Exam Date: 02/17/2023 09:12 Ordering Phys: Mis Mason FRONT OFFICE REPRESENTATIVE Technologist: CT Exam Location: [place] Indication: murmur BP: 138 / 82 HR: 70 Rhythm: Sinus Technical Quality: Technically difficult study MEASUREMENTS (Male / Female) Normal Values 2D ECHO LVOT Diameter 2.2 cm LV Ejection Fraction MOD 2C 62.4 % LV Ejection Fraction 2C AL 63.2 % LA Diameter 4.2 cm Aorta at Sinotubular Diameter 2.6 cm M-MODE Aortic Annulus Diameter 3.5 cm LA Ao Ratio MM 1.2 MV E Point Septal Separation 0.5 cm DOPPLER AV Peak Velocity 213.0 cm/s LVOT Peak Velocity 79.0 cm/s AV Area Cont Eq vti 2.1 cm squared AV Area Cont Eq pk 1.4 cm squared MV Peak Velocity 97.0 cm/s MV E' Velocity 5.0 cm/s TR Peak Velocity 218.7 cm/s TR Peak Gradient 19.1 mmHg TV Peak E Velocity 76.0 cm/s Right Atrial Pressure 3.0 mmHg Pulmonary Artery Systolic Pressu 22.1 mmHg PV Peak Velocity 149.0 cm/s FINDINGS Left Ventricle Left ventricle is normal in size. LV systolic function is normal with EF of 60 to 65%. No regional wall motion abnormalities are seen. Left ventricular hypertrophy seen. Grade 1 diastolic dysfunction. Right Ventricle Normal in size and function Right Atrium Normal in size Left Atrium Dilated Mitral Valve Moderate mitral annular calcification noted. Trace mitral regurgitation. Aortic Valve Aortic valve is thickened. No significant stenosis or regurgitation. Tricuspid Valve Mild tricuspid regurgitation. Pulmonary artery systolic pressure is normal. Pulmonic Valve Not well visualized Pericardium Normal Aorta Normal in size IVC Not well visualized. CONCLUSIONS LV systolic function is normal with EF of 60 to 65%. Left ventricular hypertrophy seen. Grade 1 diastolic dysfunction. Left atrial dilation. Trace mitral regurgitation. Mild tricuspid regurgitation. No comparison studies are available. Javan Burnham MD (Electronically Signed) Final Date: 17 February 2023 10:49 S
== END 2023-02-17 08:47 | disposition home or self-care (01) ==
LOC: RAD 08:47
PROVIDERS: PCP Nurse Practitioner Family; Visit Provider Nurse Practitioner Family
DX: I08.1 Rheumatic disorders of both mitral and tricuspid valves (principal)
CPT/HCPCS: 93306

== ENCOUNTER 2023-02-25 08:02 | Outpatient (CLI) | payer MEDICARE, MEDICAID, SELFPAY ==
[2023-02-25 08:50] LABS: INR 1.89 (0.8-1.2)
== END 2023-02-25 08:03 | disposition home or self-care (01) ==
LOC: LAB 08:03
PROVIDERS: PCP Nurse Practitioner Family; Visit Provider Nurse Practitioner Family
DX: Z86.718 Personal history of other venous thrombosis and embolism (principal); D68.51 Activated protein C resistance
CPT/HCPCS: 36415; 85610

== ENCOUNTER 2023-03-02 08:11 | Outpatient (CLI) | payer MEDICARE, MEDICAID, SELFPAY ==
[2023-03-02 10:15] LABS: INR 1.91 (0.8-1.2)
== END 2023-03-02 08:12 | disposition home or self-care (01) ==
LOC: LAB 08:15
PROVIDERS: PCP Nurse Practitioner Family; Visit Provider Nurse Practitioner Family
DX: Z86.718 Personal history of other venous thrombosis and embolism (principal); D68.51 Activated protein C resistance
CPT/HCPCS: 36415; 85610

== ENCOUNTER 2023-03-10 10:10 | Outpatient (CLI) | payer MEDICARE, MEDICAID, SELFPAY ==
[2023-03-10 10:50] LABS: INR 1.95 (0.8-1.2)
== END 2023-03-10 10:11 | disposition home or self-care (01) ==
PROVIDERS: PCP Nurse Practitioner Family; Visit Provider Nurse Practitioner Family
DX: Z86.718 Personal history of other venous thrombosis and embolism (principal); D68.51 Activated protein C resistance
CPT/HCPCS: 36415; 85610

== ENCOUNTER 2023-03-17 09:45 | Outpatient (CLI) | payer MEDICARE, MEDICAID, SELFPAY ==
[2023-03-17 10:23] LABS: INR 1.97 (0.8-1.2)
== END 2023-03-17 09:46 | disposition home or self-care (01) ==
LOC: LAB 09:47
PROVIDERS: PCP Nurse Practitioner Family; Visit Provider Nurse Practitioner Family
DX: Z86.718 Personal history of other venous thrombosis and embolism (principal); D68.51 Activated protein C resistance
CPT/HCPCS: 36415; 85610

== ENCOUNTER 2023-03-23 08:22 | Outpatient (CLI) | payer MEDICARE, MEDICAID, SELFPAY ==
[2023-03-23 09:18] LABS: INR 1.78 (0.8-1.2)
== END 2023-03-23 08:23 | disposition home or self-care (01) ==
LOC: LAB 08:22
PROVIDERS: PCP Nurse Practitioner Family; Visit Provider Nurse Practitioner Family
DX: Z86.718 Personal history of other venous thrombosis and embolism (principal); D68.51 Activated protein C resistance
CPT/HCPCS: 36415; 85610

== ENCOUNTER 2023-03-30 14:45 | Emergency (ER) | payer MEDICARE, SELFPAY ==
--- NOTE | 2023-03-30 14:51 | ECG_ITS ---
[facility] Test Date: 2023-03-30 Pat Name: Taty Davenport Department: Room: Gender: Female Bsa Officer: : 1945 Requested By: Latosha Blank Order Number: [id number] Reading MD: Benjie Robert M.D. Measurements Intervals [place] Rate: 81 P: -24 IN: 155 QRS: -7 QRSD: 98 T: 58 QT: 364 QTc: 423 Interpretive Statements SINUS RHYTHM WITH SINUS ARRHYTHMIA MODERATE ST DEPRESSION [0.05+ mV ST DEPRESSION] No previous ECG available for comparison Electronically Signed On 04-01-2023 16:29:01 SECURITY EXPERT by Benjie Robert M.D. [email or web address] [email or web address]/[id number]
--- NOTE | 2023-03-30 14:54 | XR_ITS ---
WS: [id number] XR chest 1V portable [id number] REASON FOR EXAM: cp FINDINGS: Moderate tortuosity and ectasia of the thoracic aorta. Normal heart size. Calcified granulomas disease in both hemithoraces. Increased opacity in the left lower lung field with obscuration of a portion of the left hemidiaphrag m contour indicating airspace consolidation and possibly pleural effusion. IMPRESSION: Increased opacity in the left lower lower hemithorax. Airspace consolidation which could be inflammat ory or atelectasis with small left pleural effusion.
[2023-03-30 14:56] VITALS: BP 184/82; PULSE 87; RESP 16; TEMP 36.4; O2SAT 98; BMI 29.8
[2023-03-30 16:53] LABS: Basophils % 0.5 %; Eosinophils # 0.2 10^3/uL (0.0-0.8); Eosinophils % 3.1 %; Hematocrit 42.6 % (36-47); Lymphocytes # 2.4 10^3/uL (0.8-4.8); Lymphocytes % 37.5 %; Mean Corpuscular HGB Conc 32.4 g/dL (30-55); Mean Corpuscular Volume 95.7 fl (85-98); Mean Platelet Volume 11.7 fL (7.4-10.4); Monocytes # 0.6 10^3/uL (0.2-0.9); Monocytes % 8.5 %; Neutrophils # 3.25 10^3/uL (1.8-7.7); Neutrophils % 50.1 %; Nucleated Red Blood Cells % 0 %; Platelet Count 242 10^3/cmm (157-399); Red Blood Count 4.45 10^6/uL (3.85-5.65); Red Cell Distribution Width 13.2 % (12.1-15.1); White Blood Count 6.48 10^3/uL (3.29-11.43)
[2023-03-30 17:06] LABS: Troponin(5th) Baseline 11 ng/L (0-10)
[2023-03-30 17:29] LABS: Alanine Aminotransferase 11 U/L (0-33); Albumin Level 3.9 g/dL (3.5-5.2); Alkaline Phosphatase 122 U/L (35-105); Anion Gap 13.2 (5-19); Aspartate Amino Transferase 12 U/L (0-32); Blood Urea Nitrogen 21 mg/dL (8-23); Calcium 9.2 mg/dL (8.5-10.5); Carbon Dioxide 26 mmol/L (22-29); Chloride 106 mmol/L (98-107); Globulin 2.9 g/dL (1.3-4.6); Glucose 112 mg/dL (65-115); NT Pro B Type Natriuretic Pept 653 pg/mL (0-450); Osmolality Calculated 296 mOsm/kg (285-295); Potassium 4.2 mmol/L (3.5-5.1); Sodium 141 mmol/L (136-145); Total Bilirubin 0.2 mg/dL (0.15-1.2); Total Protein 6.8 g/dL (6.6-8.7)
--- NOTE | 2023-03-30 18:12 | CTR_ITS ---
PROCEDURE INFORMATION: Exam: CTA Chest With Contrast Exam date and time: 03/30/2023 7:00 PM Age: 78 years old Clinical indication: Shortness of breath; Additional info: SOB TECHNIQUE: Imaging protocol: Computed tomographic angiography of the chest with contrast. Exam focused on the arteries. 3D rendering (Not supervised by radiologist): MIP and/or 3D reconstructed images were created by the technologist. Radiation optimization: All CT scans at this facility use at least one of these dose optimization techniques: automated exposure control; mA and/or kV adjustment per patient size (includes targeted exams where dose is matched to clinical indication); or iterative reconstruction. Contrast material: OMNI 350; Contrast volume: 100 ml; Contrast route: INTRAVENOUS (IV); COMPARISON: CR XR chest 1V portable [id number] 03/30/2023 3:13 PM RADIATION DOSE METRICS: Total DLP (mGy-cm): 503 FINDINGS: Pulmonary arteries: Normal. No pulmonary emboli. Aorta: Unremarkable. No aortic aneurysm. No aortic dissection. Lungs: Patchy atelectasis involves both lung bases but I see no lung mass or infiltrate. Pleural spaces: Unremarkable. No pneumothorax. No pleural effusion. Heart: Mild cardiomegaly is noted. Lymph nodes: Unremarkable. No enlarged lymph nodes. Bones/joints: Unremarkable. No acute fracture. Soft tissues: Unremarkable. CT/CT angio chest PE protcl [id number] IMPRESSION: Bibasilar atelectasis
--- NOTE | 2023-03-30 18:18 | ED_ITS ---
HPI - Chest Pain 2 General: Chief Complaint: Chest Pain Stated Complaint: chest tightness Time Seen by Provider: 03/30/23 18:03 Source: patient Mode of arrival: ambulatory Limitations: no limitations History of Present Illness: 78-year-old female states she is having chest pain last night 6 then resolved and started again this morning has been constant throughout the day states she does have reflux that feels like a burning sensation at times she denies any worse improved factors she has chronic shortness of breath she denies any vomiting or diarrhea. She denies any severe pain. Associated symptoms: Reports dyspnea; Deny abdominal pain, fever(s), nausea or vomiting Review of Systems 2 Const: Denies: fever(s), chills, body aches or change in appetite ENMT: Denies: throat pain or dental pain Card: Reports: chest pain Resp: Reports: dyspnea GI: Denies: abdominal pain, nausea, vomiting or diarrhea : Denies: dysuria Musc: Denies: neck pain or back pain Skin/Breast: Denies: rash Neuro: Denies: headache(s) Physical Exam 2 Const: COMMON NORMALS: no acute distress, patient oriented x3 and healthy appearing HENMT: COMMON NORMALS: normocephalic and atraumatic HEAD & SCALP: n ormocephalic and atraumatic Eye: COMMON NORMALS: Equal, round and reactive pupils present and EOMs intact bilaterally PUPIL: Yes Equal, round and reactive pupils present Neck/C-Spine: COMMON NORMALS: full ROM and supple Chest: COMMONS NORMALS: normal inspection of the chest and normal palpation of entire chest wall Resp: COMMON NORMALS: normal respiratory effort, No retractions, No use of accessory muscles and clear to auscultation bilaterally AUSCULTATION: clear to auscultation bilaterally Cardio: COMMON NORMALS: regular rate and regular rhythm RATE: regular rate RHYTHM: regular rhythm GI: COMMON NORMALS: Normal to inspection, nondistended, normoactive bowel sounds present, Soft to palpation, non-tender and no masses PALPATION: Yes Soft to palpation Extremity: COMMON NORMALS: normal to inspection and full ROM Neuro: COMMON NORMALS: patient oriented x3, moves all extremities and no focal motor deficits Psych: COMMON NORMALS: mental status grossly normal, Normal thought process present and cooperative THOUGHT PROCESS: Normal thought process present Skin: COMMON NORMALS: no rashes or lesions noted and no wounds GENERAL SKIN EXAM: no rashes or lesions noted Course 2 Vital Signs: Vital signs: Vital Signs Temperature 97.5 F L 03/30/23 14:56 Pulse Rate 77 03/30/23 20:48 Respiratory Rate 20 H 03/30/23 20:06 Blood Pressure 143/72 03/30/23 20:48 Pulse Oximetry 94 03/30/23 20:48 Oxygen Delivery Me thod Room Air 03/30/23 14:56 MDM - Chest Pain Medical Decision Making Patient presents here with chest pain along with hypertension her pain is in proved here EKG is normal her troponins are normal as well her blood pressure is improved here as well her PCP had recently decreased her lisinopril from 40-20 I did inform her of her increase it back to 40 she is to follow-up with her PCP as scheduled next Thursday return if worsening she understands agrees to plan. Lab Data I reviewed the patient's lab results. 03/30/23 16:13 03/30/23 16:13 Radiology Impressions Chest CTA 03/30/23 18:12 IMPRESSION: Bibasilar atelectasis Laboratory Results WBC 6.48 10^3/uL (3.29-11.43) 03/30/23 16:13 RBC 4.45 10^6/uL (3.85-5.65) 03/30/23 16:13 Hgb 13.80 g/dL (11.27-16.99) 03/30/23 16:13 Hct 42.6 % (36-47) 03/30/23 16:13 MCV 95.7 fl (85-98) 03/30/23 16:13 MCH 31.0 pg (27-33) 03/30/23 16:13 MCHC 32.4 g/dL (30-55) 03/30/23 16:13 RDW 13.2 % (12.1-15.1) 03/30/23 16:13 Plt Count 242 10^3/cmm (157-399) 03/30/23 16:13 MPV 11.7 fL (7.4-10.4) H 03/30/23 16:13 Neut % (Auto) 50.1 % 03/30/23 16:13 Lymph % (Auto) 37.5 % 03/30/23 16:13 [place] % (Auto) 8.5 % 03/30/23 16:13 Eos % (Auto) 3.1 % 03/30/23 16:13 Baso % (Auto) 0.5 % 03/30/23 16:13 Neut # (Auto) 3.25 10^3/uL (1.8-7.7) 03/30/23 16:13 Lymph # (Auto) 2.4 10^3/uL (0.8-4.8) 03/30/23 16:13 [place] # (Auto) 0.6 10^3/uL (0.2-0.9) 03/30/23 16:13 Eos # (Auto) 0.2 10^3/uL (0.0-0.8) 03/30/23 16:13 Baso # (Auto) 0.0 10^3/uL (0.0-0.1) 03/30/23 16:13 Nucleated RBC % (auto) 0 % 03/30/23 16:13 Nucleated RBCs # 0.0 /100WBC 03/30/23 16:13 PT Cancelled 03/30/23 16:13 INR Cancelled 03/30/23 16:13 Sodium 141 mmol/L (136-145) 03/30/23 16:13 Potassium 4.2 mmol/L (3.5-5.1) 03/30/23 16:13 Chloride 106 mmol/L (98-107) 03/30/23 16:13 Carbon Dioxide 26 mmol/L (22-29) 03/30/23 16:13 Anion Gap 13.2 (5-19) 03/30/23 16:13 BUN 21 mg/dL (8-23) 03/30/23 16:13 Creatinine 1.1 mg/dL (0.5-0.9) H 03/30/23 16:13 GFR Calculation Not Reportable 03/30/23 16:13 Glucose 112 mg/dL (65-115) 03/30/23 16:13 Calculated Osmolality 296 mOsm/kg (285-295) H 03/30/23 16:13 Calcium 9.2 mg/dL (8.5-10.5) 03/30/23 16:13 Total Bilirubin 0.2 mg/dL (0.15-1.2) 03/30/23 16:13 AST 12 U/L (0-32) 03/30/23 16:13 ALT 11 U/L (0-33) 03/30/23 16:13 Alkaline Phosphatase 122 U/L (35-105) H 03/30/23 16:13 Troponin T Baseline 11 ng/L (0-10) H 03/30/23 16:13 Troponin T 120 Minute 10.56 ng/L (0-10) H 03/30/23 19:23 Delta Troponin T -0.44 ABS# (0-10) L 03/30/23 19:23 NT-Pro-B Natriuret Pep 653 pg/mL (0-450) H 03/30/23 16:13 Total Protein 6.8 g/dL (6.6-8.7) 03/30/23 16:13 Albumin 3.9 g/dL (3.5-5.2) 03/30/23 16:13 Globulin 2.9 g/dL (1.3-4.6) 03/30/23 16:13 All radiology interpretation(s) finalized by discharge Discharge Plan Discharge Patient Disposition: Home Clinical Impression: Chest pain, Hypertension Condition: Stable Discharge Orders: Discharge ED (Routine); Ordered 03/30/23 Ordered By: Latosha Blank Referrals: Mason,BENITEZ AbebeP [Primary Care Provider] - Discharge Diet: Advance as tolerated Discharge Activity: Resume usual activity Patient Instructions: Chest Pain (ED), Hypertension (ED) Coding Level of Care Code ED Mold Parter for Gemma Wilkes
[2023-03-30] MEDS: lidocaine 2% viscous 15 ML, aluminum-mag hydrox-simethicon 30 ML, sucralfate oral liq 1 GM PO (18:35)
[2023-03-30] MEDS: hyDRALAzine 20 mg/mL INJ 1 mL 10 MG IVP (18:45)
[2023-03-30 18:50] VITALS: BP 181/96; PULSE 87; RESP 22; O2SAT 98
[2023-03-30] MEDS: iohexol 350 mg/mL 500 mL Btl (per mL) IV (19:16)
[2023-03-30 19:57] LABS: Troponin 5 2HR 10.56 ng/L (0-10); Troponin 5 2HR Delta -0.44 ABS# (0-10)
[2023-03-30 20:06] VITALS: BP 166/90; PULSE 92; RESP 20; O2SAT 96
[2023-03-30] MEDS: acetaminophen 500 mg Tablet 1000 MG PO (20:09)
[2023-03-30] MEDS: labetalol 5 mg/mL SDV 20mL 10 MG IVP (20:10)
--- NOTE | 2023-03-30 20:30 | ECG_ITS ---
[facility] Test Date: 2023-03-30 Pat Name: Taty Davenport Department: Room: Gender: Female Suction Plate Roller Hand: : 1945 Requested By: Latosha Blank Order Number: [id number] Deng MD: Javan Burnham M.D. Measurements Intervals [place] Rate: 74 P: 75 IN: 189 QRS: -28 QRSD: 93 T: 42 QT: 366 QTc: 407 Interpretive Statements SINUS RHYTHM BORDERLINE LEFT AXIS DEVIATION [QRS AXIS < -20] INCOMPLETE RIGHT BUNDLE BRANCH BLOCK [90+ ms QRS DURATION, TERMINAL R IN V1/V2, 40+ ms S IN I/aVL/V4/V5/V6] MINIMAL VOLTAGE CRITERIA FOR LVH, CONSIDER NORMAL VARIANT [MEETS CRITERIA IN ONE OF: R(aVL), S(V1), R(V5), R(V5/V6)+S(V1)] No previous ECG available for comparison Electronically Signed On 03-30-2023 23:10:09 SLIP LASTER by Javan Burnham M.D. [id number]
[2023-03-30 20:48] VITALS: BP 143/72; PULSE 77; O2SAT 94
== END 2023-03-30 20:49 | disposition home or self-care (01) ==
PROVIDERS: Emergency Provider Emergency Medicine; PCP Nurse Practitioner Family
DX: R07.9 Chest pain, unspecified (principal); I10 Essential (primary) hypertension
CPT/HCPCS: 36415; 71045; 71275; 80053; 83880; 84484; 85025; 93005; 96374; 96375; 99285; J0360; J3490; Q9967

== ENCOUNTER 2023-04-04 02:52 | Emergency (ER) | payer MEDICARE, MEDICAID, SELFPAY ==
[2023-04-04 03:06] VITALS: BP 209/93; PULSE 70; RESP 20; TEMP 36.6; O2SAT 95; BMI 29.8
--- NOTE | 2023-04-04 03:09 | ED_ITS ---
HPI - General Adult General: Chief complaint: Headache Stated complaint: HYPERTENSION Time Seen by Provider: 04/04/23 03:01 History of Present Illness: Patient presents to the ER with complaints of hypertension. Patient states she woke up around 130 this morning had a very very slight headache decided to take her blood pressure and realized it was 190/100. Patient was just here in the ER with high blood pressure and they increased her lisinopril from 20-40. Patient called EMS and proceeded to come to the ER. Patient has no other complaints at this time. Physical Exam Const: COMMON NORMALS: no acute distress, average body habitus, patient oriented x3, no limitations, healthy appearing, alert and well nourished HENMT: COMMON NORMALS: normocephalic, atraumatic, hearing grossly normal bilaterally, external ears normal, Normal external nose present, moist oral mucous membranes and oropharynx normal HEAD & SCALP: normocephalic and atraumatic NOSE: Normal external nose present EXTERNAL EAR: Yes external ears normal Neck/C-Spine: COMMON NORMALS: no JVD Chest: COMMONS NORMALS: normal inspection of the chest and normal palpation of entire chest wall Resp: COMMON NORMALS: normal respiratory effort, No retractions, No use of accessory muscles and clear to auscultation bilaterally AUSCULTATION: clear to auscultation bilaterally Cardio: COMMON NORMALS: no JVD, regular rate, regular rhythm, S1 normal heart sound present, S2 normal heart sound present, No gallops present (Cardio), No clicks present (Cardio) and No rub (Cardio); negative for No murmurs present (Cardio) (2/6 systolic ejection murmur) RATE: regular rate RHYTHM: regular rhythm HEART SOUNDS: S1 normal heart sound present and S2 normal heart sound present GI: COMMON NORMALS: Normal to inspection, nondistended, normoactive bowel sounds present, Soft to palpation, non-tender, No hepatosplenomegaly present and no masses PALPATION: Yes Soft to palpation and Yes No hepatosplenomegaly present Neuro: COMMON NORMALS: patient oriented x3 SENSORIUM/ORIENTATION: Yes alert Course Vital Signs: Vital signs: Vital Signs Temperature 98 F 04/04/23 03:06 Pulse Rate 87 04/04/23 03:30 Respiratory Rate 20 H 04/04/23 03:06 Blood Pressure 148/75 04/04/23 03:31 Pulse Oximetry 96 04/04/23 03:30 Oxygen Delivery Me thod Room Air 04/04/23 03:30 MDM - General Adult Medical Decision Making Patient presents to the ER with complaints of high blood pressure and very mild headache. Patient's blood pressure was 209/93. Patient was given 20 mg of hydralazine IV and it lowered her blood pressure to 148/75. Patient with her INR checked and it was 2.9. Patient be given a prescription for clonidine to take as needed for blood pressure. Patient should follow-up with her family practice physician within the next week. Differential Diagnosis Hypertension Medical Records I reviewed the patient's medical records. Lab Data I reviewed the patient's lab results. Laboratory Results PT 31.50 SECONDS (12.1-14.9) H 04/04/23 03:01 INR 2.90 (0.8-1.2) H 04/04/23 03:01 No radiology studies performed this visit Discharge Plan Discharge Patient Disposition: Home Clinical Impression: Hypertension Qualifiers: Hypertension type: unspecified Qualified Code(s): I10 - Essential (primary) hypertension Condition: Stable Prescriptions: New clonidine HCl 0.1 mg tablet 0.1 mg PO QID PRN (Reason: Pressure greater than 160/100) Qty: 20 0RF Discharge Orders: Discharge ED (Routine); Ordered 04/04/23 Ordered By: Santi Rodríguez Referrals: Mis Mason FNP [Primary Care Provider] - 1 week Patient Instructions: Hypertension (ED) Activity Restrictions/Additional Instructions: Your blood pressure in ER was extremely elevated. You were given hydralazine and your IV which lowered your blood pressure. You will be sent discharged home with a prescription for clonidine to take if your blood pressure is greater than 160/100. Please follow-up with your family practice physician within the next 7 days for further evaluation and treatment. Your INR was 2.9. Coding Level of Care Code ED Chemistry Research Assistant for Gemma Wilkes
[2023-04-04] MEDS: hyDRALAzine 20 mg/mL INJ 1 mL IVP (03:10)
[2023-04-04 03:30] VITALS: BP 176/86; PULSE 87; O2SAT 96
[2023-04-04 03:31] VITALS: BP 148/75
== END 2023-04-04 04:03 | disposition home or self-care (01) ==
PROVIDERS: Emergency Provider Emergency Medicine; PCP Nurse Practitioner Family
DX: I10 Essential (primary) hypertension (principal)
CPT/HCPCS: 85610; 96374; 99284; J0360

== ENCOUNTER 2023-04-14 08:10 | Outpatient (CLI) | payer MEDICARE, MEDICAID, SELFPAY ==
[2023-04-14 09:23] LABS: INR 2.42 (0.8-1.2)
== END 2023-04-14 08:11 | disposition home or self-care (01) ==
LOC: LAB 08:11
PROVIDERS: PCP Nurse Practitioner Family; Visit Provider Nurse Practitioner Family
DX: Z86.718 Personal history of other venous thrombosis and embolism (principal); D68.51 Activated protein C resistance
CPT/HCPCS: 36415; 85610

== ENCOUNTER 2023-04-20 08:01 | Outpatient (CLI) | payer MEDICARE, MEDICAID, SELFPAY ==
[2023-04-20 09:06] LABS: INR 3.08 (0.8-1.2)
== END 2023-04-20 08:02 | disposition home or self-care (01) ==
LOC: LAB 08:04
PROVIDERS: PCP Nurse Practitioner Family; Visit Provider Nurse Practitioner Family
DX: Z86.718 Personal history of other venous thrombosis and embolism (principal); D68.51 Activated protein C resistance
CPT/HCPCS: 36415; 85610

== ENCOUNTER 2023-04-27 11:58 | Outpatient (CLI) | payer MEDICARE, MEDICAID, SELFPAY ==
[2023-04-27 12:29] LABS: INR 2.89 (0.8-1.2)
== END 2023-04-27 11:59 | disposition home or self-care (01) ==
LOC: LAB 11:59
PROVIDERS: PCP Nurse Practitioner Family; Visit Provider Nurse Practitioner Family
DX: D68.51 Activated protein C resistance (principal); Z86.718 Personal history of other venous thrombosis and embolism; I11.0 Hypertensive heart disease with heart failure; I35.8 Other nonrheumatic aortic valve disorders; I50.30 Unspecified diastolic (congestive) heart failure; I34.0 Nonrheumatic mitral (valve) insufficiency; I48.21 Permanent atrial fibrillation; R09.89 Other specified symptoms and signs involving the circulatory and respiratory systems; Z82.49 Family history of ischemic heart disease and other diseases of the circulatory system; Z79.01 Long term (current) use of anticoagulants
CPT/HCPCS: 36415; 85610; 99204

== ENCOUNTER 2023-05-04 07:55 | Outpatient (CLI) | payer MEDICARE, MEDICAID, SELFPAY | END 2023-05-04 07:56 | disposition home or self-care (01) | LOC: LAB 07:58 | PROVIDERS: PCP Nurse Practitioner Family; Visit Provider Nurse Practitioner Family | DX: Z86.718 Personal history of other venous thrombosis and embolism (principal) | CPT/HCPCS: 36415; 85610 ==

== ENCOUNTER 2023-05-06 08:17 | Outpatient (CLI) | payer MEDICARE, MEDICAID, SELFPAY ==
[2023-05-06 08:22] VITALS: BMI 30.3
--- NOTE | 2023-05-06 08:27 | ECG_ITS ---
[facility] Test Date: 2023-05-06 Pat Name: Taty Davenport Department: Room: Gender: Female Nursery Helper: : 1945 Requested By: Eleanor Velez Order Number: [id number] Deng MD: Eleanor Velez M.D. Interpretive Statements NAME OF STUDY: LEXISCAN SESTAMIBI STRESS TEST INDICATION: CHF PROCEDURE: At the baseline, the EKG revealed normal sinus rhythm with poor R wave progression. Left axis deviation. The baseline heart was 65 bpm with a blood pressue of 157/95 mm of Hg Lexiscan was infused over a period of 20 seconds. A total of 0.4 milligrams of Lexiscan was infused. The stress phase was continued for a total of 5 minutes. Heart rate at the end of the stress phase was 84 bpm with a blood pressure 127/67 mm of Hg. The EKG at the peak infusion revealed no significant changes. Sestamibi was injected 20 seconds after the Lexiscan infusion. Heart rate at the end of the recovery phase was 74 bpm with a blood pressure of 113/70 mm of Hg. CONCLUSION: 1. No significant EKG changes with the LexiScan infusion 2. No LexiScan induced chest pain or cardiac arrhythmia 3. Normal blood pressure and heart rate response 4. Sestamibi/sestamibi perfusion scan pending; see separate report. Electronically Signed On 05-09-2023 19:18:24 CDT by Eleanor Velez M.D. [id number]
--- NOTE | 2023-05-06 08:27 | NMCV_ITS ---
NM roberto perf SPECT r/s* [id number] Taty Davenport Age: 78 Gender: F : 1945 Exam Date: 05/06/2023 09:31 Ordering Phys: Eleanor Velez MD ([email or web address]) Technologist: REAGAN Valerio Exam [facility]: [facility] Indications: TANESHA STRESS TEST [facility] IMAGE PROTOCOL Rest/Stress 1 Lexiscan Day Radiopharmaceutical Dose (mCi) Administration Site Administered by Rest: Tc-99m 10.8 IV REAGAN Valerio Sestamibi Stress:Tc-99m 32.7 IV REAGAN Valerio Sestaminorma Rest: 06-May-2023 60 Discovery 630 Stress: 06-May-2023 30 Discovery 630 0.4mg Lexiscan. Supine position only as patient was unable to lay prone. SPECT RESULTS Technical Quality: Good Raw Data Analysis: Breast attenuation Image Corrections: No attenuation or motion correction applied Summed Stress Score: 3 Summed Rest Score: 0 Summed Difference Score: 3 PERFUSION FINDINGS Mild to moderate area of moderately decreased tracer uptake involving the basal and mid inferolateral segments with complete reversibility FUNCTIONAL RESULTS (calculated via Gated SPECT) Stress Image LV EF (%): 89 Stress EDV (mL):54 TID: 1.17 Stress ESV (mL):6 FUNCTIONAL FINDINGS: Segmental wall motion analysis revealing no gross wall motion abnormalities Elevated transient ischemic dilatation ratio 1.17 IMPRESSIONS 1. Myocardial perfusion imaging revealing small to moderate area of reversible defect in the inferolateral region suggesting ischemia in the distribution of the left circumflex artery. Elevated transient ischemic dilatation ratio also may suggest endocardial ischemia. 2. Normal LV ejection fraction of 89%. 3. LV wall motion analysis revealing no gross wall motion abnormalities. 4. Normal LV volume No similar previous studies are available for comparison Dr Eleanor Velez MD [facility] (Electronically Signed) Final Date: 06 May 2023 17:30 S
[2023-05-06] MEDS: regadenoson 0.4 Mg/5 ml Syringe 0.400000000000000022 MG IVP (10:14)
[2023-05-06 10:30] VITALS: BP 127/65; PULSE 67
== END 2023-05-06 08:18 | disposition home or self-care (01) ==
LOC: CDL 08:18
PROVIDERS: PCP Nurse Practitioner Family; Visit Provider Internal Medicine Cardiovascular Disease
DX: Z98.61 Coronary angioplasty status (principal)
CPT/HCPCS: 36415; 78452; 93017; 96374; A9500; J2785

== ENCOUNTER 2023-05-18 07:37 | Outpatient (CLI) | payer MEDICARE, MEDICAID, SELFPAY ==
[2023-05-18 08:48] LABS: INR 2.38 (0.8-1.2)
== END 2023-05-18 07:38 | disposition home or self-care (01) ==
LOC: LAB 07:40
PROVIDERS: PCP Nurse Practitioner Family; Visit Provider Nurse Practitioner Family
DX: Z86.718 Personal history of other venous thrombosis and embolism (principal); D68.51 Activated protein C resistance
CPT/HCPCS: 36415; 85610

== ENCOUNTER → 2023-05-26 11:25 | Outpatient (BNVA) | payer MEDICARE, MEDICAID, SELFPAY | PROVIDERS: PCP Nurse Practitioner Family; Visit Provider Internal Medicine Cardiovascular Disease | DX: I11.0 Hypertensive heart disease with heart failure (principal); I50.30 Unspecified diastolic (congestive) heart failure; I48.21 Permanent atrial fibrillation; I82.409 Acute embolism and thrombosis of unspecified deep veins of unspecified lower extremity; I34.0 Nonrheumatic mitral (valve) insufficiency; Z79.01 Long term (current) use of anticoagulants | CPT/HCPCS: 99214 ==

== ENCOUNTER 2023-06-08 08:10 | Outpatient (CLI) | payer MEDICARE, MEDICAID, SELFPAY ==
--- NOTE | 2023-06-08 08:20 | MM_ITS ---
WS: [id number] VIEWS: MLO and CC views both breasts. 3D digital tomosynthesis is also included in this exam. Comparison made with prior exam of 12/01/2011, 11/10/2012, 12/01/2013, 12/04/2014, 12/14/2015, 7, 02/01/2018, 02/02/2019, 05/20/2022.. Findings: There was no sign of mass, architectural distortion or suspicious calcification in either breast. The breasts are almost entirely fatty. Impression: MM/[place] [id number] BI-RADS: 1-Negative FOLLOW-UP: 1 Year Follow-up This mammogram was also analyzed by the Computer Aided Detection System R2 Imag e Conveyor Man.
[2023-06-08 08:37] LABS: INR 2.83 (0.8-1.2)
== END 2023-06-08 08:11 | disposition home or self-care (01) ==
LOC: RAD 08:12
PROVIDERS: PCP Nurse Practitioner Family; Visit Provider Nurse Practitioner Family
DX: D68.51 Activated protein C resistance (principal); Z86.718 Personal history of other venous thrombosis and embolism; Z12.31 Encounter for screening mammogram for malignant neoplasm of breast
CPT/HCPCS: 36415; 77063; 77067; 85610

== ENCOUNTER 2023-07-06 08:20 | Outpatient (CLI) | payer MEDICARE, MEDICAID, SELFPAY | END 2023-07-06 08:21 | disposition home or self-care (01) | LOC: LAB 08:26 | PROVIDERS: PCP Nurse Practitioner Family; Visit Provider Nurse Practitioner Family | DX: D68.51 Activated protein C resistance (principal); Z86.718 Personal history of other venous thrombosis and embolism | CPT/HCPCS: 36415; 85610 ==

== ENCOUNTER → 2023-07-30 08:53 | Outpatient (BNVA) | payer MEDICARE, MEDICAID, SELFPAY | PROVIDERS: PCP Nurse Practitioner Family; Visit Provider Nurse Practitioner Family | DX: I11.0 Hypertensive heart disease with heart failure (principal); I50.30 Unspecified diastolic (congestive) heart failure; I48.21 Permanent atrial fibrillation; Z87.891 Personal history of nicotine dependence; Z79.01 Long term (current) use of anticoagulants | CPT/HCPCS: 99214 ==

== ENCOUNTER 2023-08-03 07:30 | Outpatient (CLI) | payer MEDICARE, MEDICAID, SELFPAY ==
[2023-08-03 08:14] LABS: INR 3.04 (0.8-1.2)
== END 2023-08-03 07:31 | disposition home or self-care (01) ==
PROVIDERS: PCP Nurse Practitioner Family; Visit Provider Nurse Practitioner Family
DX: D68.51 Activated protein C resistance (principal); Z86.718 Personal history of other venous thrombosis and embolism
CPT/HCPCS: 36415; 85610

== ENCOUNTER 2023-08-10 07:51 | Outpatient (CLI) | payer MEDICARE, MEDICAID, SELFPAY | END 2023-08-10 07:52 | disposition home or self-care (01) | LOC: LAB 07:54 | PROVIDERS: PCP Nurse Practitioner Family; Visit Provider Nurse Practitioner Family | DX: Z86.718 Personal history of other venous thrombosis and embolism (principal); D68.51 Activated protein C resistance | CPT/HCPCS: 36415; 85610 ==

== ENCOUNTER 2023-08-17 08:21 | Outpatient (CLI) | payer MEDICARE, MEDICAID, SELFPAY ==
[2023-08-17 10:26] LABS: INR 3.81 (0.8-1.2)
== END 2023-08-17 08:22 | disposition home or self-care (01) ==
LOC: LAB 08:25
PROVIDERS: PCP Nurse Practitioner Family; Visit Provider Nurse Practitioner Family
DX: Z86.718 Personal history of other venous thrombosis and embolism (principal); D68.51 Activated protein C resistance
CPT/HCPCS: 36415; 85610

== ENCOUNTER 2023-08-24 09:35 | Outpatient (CLI) | payer MEDICARE, MEDICAID, SELFPAY ==
[2023-08-24 10:29] LABS: INR 3.11 (0.8-1.2)
== END 2023-08-24 09:36 | disposition home or self-care (01) ==
LOC: LAB 09:36
PROVIDERS: PCP Nurse Practitioner Family; Visit Provider Nurse Practitioner Family
DX: Z86.718 Personal history of other venous thrombosis and embolism (principal); D68.51 Activated protein C resistance
CPT/HCPCS: 36415; 85610

== ENCOUNTER 2023-08-31 08:35 | Outpatient (CLI) | payer MEDICARE, MEDICAID, SELFPAY ==
[2023-08-31 10:45] LABS: INR 4.27 (0.8-1.2)
== END 2023-08-31 08:36 | disposition home or self-care (01) ==
LOC: LAB 08:39
PROVIDERS: PCP Nurse Practitioner Family; Visit Provider Nurse Practitioner Family
DX: Z86.718 Personal history of other venous thrombosis and embolism (principal)
CPT/HCPCS: 36415; 85610

== ENCOUNTER 2023-09-21 08:42 | Outpatient (CLI) | payer MEDICARE, MEDICAID, SELFPAY ==
[2023-09-21 09:13] LABS: INR 2.32 (0.8-1.2)
== END 2023-09-21 08:43 | disposition home or self-care (01) ==
LOC: LAB 08:45
PROVIDERS: PCP Nurse Practitioner Family; Visit Provider Nurse Practitioner Family
DX: Z86.718 Personal history of other venous thrombosis and embolism (principal); Z79.01 Long term (current) use of anticoagulants; D68.51 Activated protein C resistance
CPT/HCPCS: 36415; 85610

== ENCOUNTER 2023-09-28 07:39 | Outpatient (CLI) | payer MEDICARE, MEDICAID, SELFPAY ==
[2023-09-28 08:14] LABS: INR 2.49 (0.8-1.2)
== END 2023-09-28 07:40 | disposition home or self-care (01) ==
LOC: LAB 07:42
PROVIDERS: PCP Nurse Practitioner Family; Visit Provider Nurse Practitioner Family
DX: Z86.718 Personal history of other venous thrombosis and embolism (principal); D68.51 Activated protein C resistance
CPT/HCPCS: 36415; 85610

== ENCOUNTER 2023-10-12 08:05 | Outpatient (CLI) | payer MEDICARE, MEDICAID, SELFPAY ==
--- NOTE | 2023-10-12 08:19 | XRR_ITS ---
PROCEDURE INFORMATION: Exam: XR Left Foot Exam date and time: 10/12/2023 8:24 AM Age: 78 years old Clinical indication: Left; Prior surgery; Surgery date: 6+ months; Surgery type: Ankle 28 years ago; Patient HX: X28 years broke ankle, multiple pins inserted, history of gout, recent pain on lateral aspect of foot and ankle; Additional info: Chronic gout/pain in left foot/osteoarthritis TECHNIQUE: Imaging protocol: Radiologic exam of the left foot. Views: 3 or more views. COMPARISON: soft tissue/extremity [id number] 06/08/2020 7:37 AM FINDINGS: Tubes, catheters and devices: Prior ORIF of the distal fibula and a single cannulated lag screw within the distal tibia. Hardware appears intact without complication. Bones/joints: No definite acute fracture or dislocation. Moderate degenerative changes of the 5th metatarsophalangeal joint. A well corticated ossific density along the distal 5th metatarsal may be from remote trauma or degenerative changes. Diffuse osseous demineralization throughout the mid to forefoot. Soft tissues: Normal. XR/XR foot LT min 3V* [id number] IMPRESSION: 1. No acute fracture or dislocation. 2. Moderate degenerative changes of the 5th MTP joint.
[2023-10-12 08:53] LABS: INR 3.08 (0.8-1.2)
== END 2023-10-12 08:06 | disposition home or self-care (01) ==
LOC: LAB 08:11
PROVIDERS: PCP Nurse Practitioner Family; Visit Provider Nurse Practitioner Family
DX: M1A.9XX0 Chronic gout, unspecified, without tophus (tophi) (principal); M19.072 Primary osteoarthritis, left ankle and foot; D68.51 Activated protein C resistance; Z86.718 Personal history of other venous thrombosis and embolism
CPT/HCPCS: 36415; 73630; 85610

== ENCOUNTER 2023-10-19 07:14 | Outpatient (CLI) | payer MEDICARE, MEDICAID, SELFPAY ==
[2023-10-19 08:13] LABS: INR 3.71 (0.8-1.2)
== END 2023-10-19 07:15 | disposition home or self-care (01) ==
LOC: LAB 07:17
PROVIDERS: PCP Nurse Practitioner Family; Visit Provider Nurse Practitioner Family
DX: Z86.718 Personal history of other venous thrombosis and embolism (principal)
CPT/HCPCS: 36415; 85610

== ENCOUNTER 2023-11-02 08:18 | Outpatient (CLI) | payer MEDICARE, MEDICAID, SELFPAY ==
[2023-11-02 09:36] LABS: INR 1.98 (0.8-1.2)
== END 2023-11-02 08:19 | disposition home or self-care (01) ==
LOC: LAB 08:21
PROVIDERS: PCP Nurse Practitioner Family; Visit Provider Nurse Practitioner Family
DX: Z86.718 Personal history of other venous thrombosis and embolism (principal)
CPT/HCPCS: 36415; 85610

== ENCOUNTER 2023-11-09 07:38 | Outpatient (CLI) | payer MEDICARE, MEDICAID, SELFPAY ==
[2023-11-09 08:57] LABS: INR 1.98 (0.8-1.2)
== END 2023-11-09 07:39 | disposition home or self-care (01) ==
LOC: LAB 07:41
PROVIDERS: PCP Nurse Practitioner Family; Visit Provider Nurse Practitioner Family
DX: Z86.718 Personal history of other venous thrombosis and embolism (principal)
CPT/HCPCS: 36415; 85610

== ENCOUNTER 2023-11-16 07:51 | Outpatient (CLI) | payer MEDICARE, MEDICAID, SELFPAY ==
[2023-11-16 08:21] LABS: INR 1.99 (0.8-1.2)
== END 2023-11-16 07:52 | disposition home or self-care (01) ==
LOC: LAB 07:52
PROVIDERS: PCP Nurse Practitioner Family; Visit Provider Nurse Practitioner Family
DX: Z86.718 Personal history of other venous thrombosis and embolism (principal); D68.51 Activated protein C resistance
CPT/HCPCS: 36415; 85610

== ENCOUNTER 2023-11-23 07:46 | Outpatient (CLI) | payer MEDICARE, MEDICAID, SELFPAY ==
[2023-11-23 08:52] LABS: INR 2.27 (0.8-1.2)
[2023-11-23 09:00] LABS: Estmated Average Glucose 128; Hemoglobin A1C 6.1 % (4.0-6.0)
[2023-11-23 09:02] LABS: Anion Gap 14.5 (5-19); Blood Urea Nitrogen 34 mg/dL (8-23); Calcium 9.2 mg/dL (8.5-10.5); Carbon Dioxide 24 mmol/L (22-29); Chloride 106 mmol/L (98-107); Glucose 111 mg/dL (65-115); Osmolality Calculated 298 mOsm/kg (285-295); Potassium 4.5 mmol/L (3.5-5.1); Sodium 140 mmol/L (136-145)
== END 2023-11-23 07:47 | disposition home or self-care (01) ==
LOC: LAB 07:50
PROVIDERS: PCP Nurse Practitioner Family; Visit Provider Nurse Practitioner Family
DX: I10 Essential (primary) hypertension (principal); Z86.718 Personal history of other venous thrombosis and embolism; R73.03 Prediabetes; D68.51 Activated protein C resistance
CPT/HCPCS: 80048; 83036; 85610

== ENCOUNTER 2023-11-30 08:00 | Outpatient (CLI) | payer MEDICARE, MEDICAID, SELFPAY ==
[2023-11-30 08:35] LABS: INR 1.97 (0.8-1.2)
== END 2023-11-30 08:01 | disposition home or self-care (01) ==
LOC: LAB 08:02
PROVIDERS: PCP Nurse Practitioner Family; Visit Provider Nurse Practitioner Family
DX: Z86.718 Personal history of other venous thrombosis and embolism (principal)
CPT/HCPCS: 85610

== ENCOUNTER 2023-12-07 08:14 | Outpatient (CLI) | payer MEDICARE, MEDICAID, SELFPAY ==
[2023-12-07 08:42] LABS: INR 1.73 (0.8-1.2)
== END 2023-12-07 08:15 | disposition home or self-care (01) ==
LOC: LAB 08:15
PROVIDERS: PCP Nurse Practitioner Family; Visit Provider Nurse Practitioner Family
DX: D68.51 Activated protein C resistance (principal); Z86.718 Personal history of other venous thrombosis and embolism
CPT/HCPCS: 85610

== ENCOUNTER 2023-12-21 08:10 | Outpatient (CLI) | payer MEDICARE, MEDICAID, SELFPAY ==
[2023-12-21 09:10] LABS: INR 1.88 (0.8-1.2)
== END 2023-12-21 08:11 | disposition home or self-care (01) ==
LOC: LAB 08:13
PROVIDERS: PCP Nurse Practitioner Family; Visit Provider Nurse Practitioner Family
DX: Z86.718 Personal history of other venous thrombosis and embolism (principal); D68.51 Activated protein C resistance; Z79.01 Long term (current) use of anticoagulants
CPT/HCPCS: 36415; 85610

== ENCOUNTER 2024-01-05 08:06 | Outpatient (CLI) | payer MEDICARE, MEDICAID, SELFPAY ==
[2024-01-05 08:56] LABS: INR 2.29 (0.8-1.2)
== END 2024-01-05 08:07 | disposition home or self-care (01) ==
LOC: LAB 08:08
PROVIDERS: PCP Nurse Practitioner Family; Visit Provider Nurse Practitioner Family
DX: Z86.718 Personal history of other venous thrombosis and embolism (principal); Z79.01 Long term (current) use of anticoagulants; D68.51 Activated protein C resistance
CPT/HCPCS: 36415; 85610

== ENCOUNTER 2024-01-11 07:41 | Outpatient (CLI) | payer MEDICARE, MEDICAID, SELFPAY ==
[2024-01-11 08:13] LABS: INR 1.75 (0.8-1.2)
== END 2024-01-11 07:42 | disposition home or self-care (01) ==
LOC: LAB 07:43
PROVIDERS: PCP Nurse Practitioner Family; Visit Provider Nurse Practitioner Family
DX: Z86.718 Personal history of other venous thrombosis and embolism (principal); D68.51 Activated protein C resistance; Z79.01 Long term (current) use of anticoagulants
CPT/HCPCS: 36415; 85610

== ENCOUNTER 2024-01-26 07:47 | Outpatient (CLI) | payer MEDICARE, MEDICAID, SELFPAY ==
[2024-01-26 09:01] LABS: Estmated Average Glucose 128; Hemoglobin A1C 6.1 % (4.0-6.0)
[2024-01-26 09:05] LABS: INR 2.06 (0.8-1.2)
[2024-01-26 09:17] LABS: Anion Gap 15.9 (5-19); Blood Urea Nitrogen 33 mg/dL (8-23); Calcium 9.3 mg/dL (8.5-10.5); Carbon Dioxide 24 mmol/L (22-29); Chloride 106 mmol/L (98-107); Glucose 114 mg/dL (65-115); Osmolality Calculated 300 mOsm/kg (285-295); Potassium 4.9 mmol/L (3.5-5.1); Sodium 141 mmol/L (136-145)
== END 2024-01-26 07:48 | disposition home or self-care (01) ==
PROVIDERS: PCP Nurse Practitioner Family; Visit Provider Nurse Practitioner Family
DX: I10 Essential (primary) hypertension (principal); Z86.718 Personal history of other venous thrombosis and embolism; R73.03 Prediabetes; D68.51 Activated protein C resistance; Z79.1 Long term (current) use of non-steroidal anti-inflammatories (NSAID)
CPT/HCPCS: 36415; 80048; 83036; 85610

== ENCOUNTER 2024-02-01 10:50 | Outpatient (CLI) | payer MEDICARE, MEDICAID, SELFPAY ==
[2024-02-01 11:32] LABS: INR 1.79 (0.8-1.2)
== END 2024-02-01 10:51 | disposition home or self-care (01) ==
PROVIDERS: PCP Nurse Practitioner Family; Visit Provider Nurse Practitioner Family
DX: Z86.718 Personal history of other venous thrombosis and embolism (principal); D68.51 Activated protein C resistance; Z79.01 Long term (current) use of anticoagulants
CPT/HCPCS: 36415; 85610

== ENCOUNTER → 2024-02-02 13:51 | Outpatient (BNVA) | payer MEDICARE, MEDICAID, SELFPAY | PROVIDERS: PCP Nurse Practitioner Family; Visit Provider Internal Medicine Cardiovascular Disease | DX: R94.39 Abnormal result of other cardiovascular function study (principal); I11.0 Hypertensive heart disease with heart failure; I50.30 Unspecified diastolic (congestive) heart failure; I48.21 Permanent atrial fibrillation; I34.0 Nonrheumatic mitral (valve) insufficiency; Z86.718 Personal history of other venous thrombosis and embolism; Z79.01 Long term (current) use of anticoagulants; Z87.891 Personal history of nicotine dependence | CPT/HCPCS: 99214 ==

== ENCOUNTER 2024-02-15 11:51 | Outpatient (CLI) | payer MEDICARE, MEDICAID, SELFPAY ==
[2024-02-15 12:42] LABS: INR 2.75 (0.8-1.2)
== END 2024-02-15 11:52 | disposition home or self-care (01) ==
PROVIDERS: PCP Nurse Practitioner Family; Visit Provider Nurse Practitioner Family
DX: D68.51 Activated protein C resistance (principal); Z86.718 Personal history of other venous thrombosis and embolism
CPT/HCPCS: 36415; 85610

== ENCOUNTER 2024-02-22 07:56 | Outpatient (CLI) | payer MEDICARE, MEDICAID, SELFPAY ==
[2024-02-22 08:56] LABS: INR 3.31 (0.8-1.2)
== END 2024-02-22 07:57 | disposition home or self-care (01) ==
LOC: LAB 07:59
PROVIDERS: PCP Nurse Practitioner Family; Visit Provider Nurse Practitioner Family
DX: D68.51 Activated protein C resistance (principal); Z86.718 Personal history of other venous thrombosis and embolism
CPT/HCPCS: 36415; 85610

== ENCOUNTER 2024-03-01 08:51 | Outpatient (CLI) | payer MEDICARE, MEDICAID, SELFPAY ==
--- NOTE | 2024-03-01 09:15 | USCV_ITS ---
Taty Davenport Age: 79 Gender: F : 1945 Exam Date: 03/01/2024 09:09 Ordering Phys: Eleanor Velez MD ([email or web address]) Technologist: HARSH [place] [facility] [place]: as BP: 102 / 65 HR: 96 Rhythm: Sinus Technical Quality: Adequate MEASUREMENTS (Male / Female) Normal Values 2D ECHO LVOT Diameter 2.1 cm LV Ejection Fraction MOD 4C 63.7 % LV Ejection Fraction MOD 2C 60.2 % LV Ejection Fraction 2C AL 61.6 % LA Diameter 3.3 cm RA Systolic Volume 4C AL 27.6 ml RA Systolic Volume 4C MOD 26.9 ml LA Sys Volume AL 45.2 cm cubed LA Sys Volume Index AL 21.8 cm cubed/m squared Aorta at Sinotubular Diameter 2.6 cm M-MODE LA Ao Ratio MM 1.1 AV Cusp Separation MM 1.4 cm DOPPLER AV Peak Velocity 274.0 cm/s LVOT Peak Velocity 120.0 cm/s AV Area Cont Eq vti 1.9 cm squared AV Area Cont Eq pk 1.6 cm squared MV Peak Velocity 127.0 cm/s MV Area PHT 3.7 cm squared Mitral E to A Ratio 1.1 TV Peak Velocity 281.5 cm/s TR Peak Velocity 304.5 cm/s TR Peak Gradient 37.1 mmHg TR Mean Velocity 250.0 cm/s TR Mean Gradient 26.7 mmHg TR Velocity Time Integral 69.9 cm TV Peak E Velocity 68.0 cm/s PV Peak Velocity 91.0 cm/s FINDINGS Left Ventricle Normal left ventricular size and systolic function, EF 62%. Mild left ventricular hypertrophy. No regional wall motion abnormalities. Right Ventricle The right ventricle is normal in size and function. Right Atrium The right atrium is normal in size. Left Atrium There is a large atrial septal aneurysm measuring 2.4 x 1.9 cm.mildly increased left atrial size. Mitral Valve Mild mitral annular calcification. Aortic Valve Mild aortic valve stenosis, mean gradient 15.3 mmHg, SASHA 1.9 cm squared. Trace to mild aortic valve regurgitation. Tricuspid Valve Mild tricuspid valve regurgitation. Pulmonic Valve Trace pulmonary valve regurgitation. Pericardium Normal pericardium without effusion. Aorta Normal ascending aorta dimension. IVC Inferior vena cava not visualized. CONCLUSIONS Normal left ventricular size and systolic function, EF 62%. Mild left ventricular hypertrophy. No regional wall motion abnormalities. Some features of grade 1 left-ventricular diastolic dysfunction Mild aortic valve stenosis, mean gradient 15.3 mmHg, SASHA 1.9 cm squared. Trace to mild aortic valve regurgitation. Mild tricuspid valve regurgitation. Trace pulmonary valve regurgitation. There is no pericardial effusion. There are no intracardiac masses. Compared to the study from 02/17/2023, there may not be significant change Dr Eleanor Velez MD [facility] (Electronically Signed) Final Date: 07 March 2024 13:04 S
== END 2024-03-01 08:52 | disposition home or self-care (01) ==
PROVIDERS: PCP Nurse Practitioner Family; Visit Provider Internal Medicine Cardiovascular Disease
DX: I35.0 Nonrheumatic aortic (valve) stenosis (principal); Q21.10 Atrial septal defect, unspecified
CPT/HCPCS: 93306

== ENCOUNTER 2024-03-08 13:28 | Outpatient (CLI) | payer MEDICARE, MEDICAID, SELFPAY ==
--- NOTE | 2024-03-08 13:34 | XR_ITS ---
WS: [email or web address] SCREENING DEXA SCAN [facility] CLINICAL INFORMATION: HX OF OSTEOPOROSIS COMPARISON: None. FINDINGS: The L1-L4 bone mineral density measures 1.034 g/cm2. This corresponds to a T score score of -1.2 and Z score of -0.2. Left femoral neck bone mineral density measures 0.692 g/cm2. This corresponds to a T score of -2.5 an d Z score of -1.0. Right femoral neck bone mineral density measures 0.728 g/cm2. This corresponds to a T score -2.2of an d Z score of -0.7. Mean femoral neck bone mineral density measures 0.710 g/cm2. This corresponds to a T score of -2.4 an d Z score of -0.9. XR/XR DEXA axial skeleton* [id number] IMPRESSION: Osteopenia lumbar spine. Osteopenia femoral necks at the upper end of the range approaching osteoporosis Patient's FRAX calculated 10 year probability for major osteoporotic fracture i s 48.8% and osteoporotic hip fracture is 35.1%.
[2024-03-08 13:56] LABS: INR 2.61 (0.8-1.2)
== END 2024-03-08 13:29 | disposition home or self-care (01) ==
LOC: RAD 13:30
PROVIDERS: PCP Nurse Practitioner Family; Visit Provider Nurse Practitioner Family
DX: Z78.0 Asymptomatic menopausal state (principal); Z86.718 Personal history of other venous thrombosis and embolism; M85.88 Other specified disorders of bone density and structure, other site; M85.852 Other specified disorders of bone density and structure, left thigh; M85.851 Other specified disorders of bone density and structure, right thigh
CPT/HCPCS: 36415; 77080; 85610

== ENCOUNTER 2024-03-14 07:47 | Outpatient (CLI) | payer MEDICARE, MEDICAID, SELFPAY ==
[2024-03-14 08:38] LABS: INR 2.11 (0.8-1.2)
== END 2024-03-14 07:48 | disposition home or self-care (01) ==
LOC: LAB 07:48
PROVIDERS: PCP Nurse Practitioner Family; Visit Provider Nurse Practitioner Family
DX: Z86.718 Personal history of other venous thrombosis and embolism (principal); D68.51 Activated protein C resistance
CPT/HCPCS: 36415; 85610

== ENCOUNTER 2024-03-29 08:29 | Outpatient (CLI) | payer MEDICARE, MEDICAID, SELFPAY ==
[2024-03-29 09:17] LABS: INR 2.35 (0.8-1.2)
== END 2024-03-29 08:30 | disposition home or self-care (01) ==
LOC: LAB 08:32
PROVIDERS: PCP Nurse Practitioner Family; Visit Provider Nurse Practitioner Family
DX: Z86.718 Personal history of other venous thrombosis and embolism (principal); D68.51 Activated protein C resistance
CPT/HCPCS: 36415; 85610

== ENCOUNTER 2024-04-18 08:04 | Outpatient (CLI) | payer MEDICARE, MEDICAID, SELFPAY ==
[2024-04-18 08:43] LABS: INR 2.39 (0.8-1.2)
== END 2024-04-18 08:05 | disposition home or self-care (01) ==
LOC: LAB 08:07
PROVIDERS: PCP Nurse Practitioner Family; Visit Provider Nurse Practitioner Family
DX: Z86.718 Personal history of other venous thrombosis and embolism (principal); D68.51 Activated protein C resistance
CPT/HCPCS: 36415; 85610

== ENCOUNTER 2024-05-16 08:05 | Outpatient (CLI) | payer MEDICARE, MEDICAID, SELFPAY ==
[2024-05-16 09:29] LABS: Blood Urea Nitrogen 34 mg/dL (8-23); Calcium 9.2 mg/dL (8.5-10.5); Carbon Dioxide 25 mmol/L (22-29); Chloride 106 mmol/L (98-107); Glucose 115 mg/dL (65-115); Osmolality Calculated 299 mOsm/kg (285-295); Sodium 140 mmol/L (136-145)
[2024-05-16 09:36] LABS: INR 2.27 (0.8-1.2)
[2024-05-16 10:15] LABS: Estmated Average Glucose 126
== END 2024-05-16 08:06 | disposition home or self-care (01) ==
LOC: LAB 08:07
PROVIDERS: PCP Nurse Practitioner Family; Visit Provider Nurse Practitioner Family
DX: R73.03 Prediabetes (principal); Z79.01 Long term (current) use of anticoagulants; Z86.718 Personal history of other venous thrombosis and embolism; D68.51 Activated protein C resistance; I10 Essential (primary) hypertension
CPT/HCPCS: 36415; 80048; 83036; 85610

== ENCOUNTER 2024-06-13 07:32 | Outpatient (CLI) | payer MEDICARE, MEDICAID, SELFPAY ==
--- NOTE | 2024-06-13 | MM_ITS ---
WS: [email or web address] VIEWS: MLO and CC views both breasts. 3D digital tomosynthesis is also included in this exam. Comparison made with prior exam of 09/19/2008, 10/16/2009, 10/29/2010, 11/11/2011, 12/10/2012, 12/01/2013, 12/04/2014, 12/14/2015, 01/09/2017, 02/01/2018, 02/02/2019, 05/20/2022, 06/08/2023.. Findings: There are scattered areas of fibroglandular density. No sign of suspicious mass, tumor calcification or architectural distortion. MM/MM scr BI tomosynthesis [id number] Impression: BI-RADS: 2 - Benign. FOLLOW-UP: 1 Year Follow-up This mammogram was also analyzed by the Computer Aided Detection System R2 Imag e Bundle Wrapper.
[2024-06-13 08:40] LABS: INR 2.71 (0.8-1.2)
== END 2024-06-13 07:33 | disposition home or self-care (01) ==
PROVIDERS: PCP Nurse Practitioner Family; Visit Provider Nurse Practitioner Family
DX: Z12.31 Encounter for screening mammogram for malignant neoplasm of breast (principal); Z86.718 Personal history of other venous thrombosis and embolism; R92.323 Mammographic fibroglandular density, bilateral breasts
CPT/HCPCS: 36415; 77063; 77067; 85610

== ENCOUNTER 2024-07-12 07:09 | Outpatient (CLI) | payer MEDICARE, MEDICAID, SELFPAY ==
[2024-07-12 08:23] LABS: INR 2.13 (0.8-1.2)
== END 2024-07-12 07:10 | disposition home or self-care (01) ==
LOC: LAB 07:13
PROVIDERS: PCP Nurse Practitioner Family; Visit Provider Nurse Practitioner Family
DX: Z86.718 Personal history of other venous thrombosis and embolism (principal); D68.51 Activated protein C resistance
CPT/HCPCS: 36415; 85610

== ENCOUNTER 2024-08-08 07:47 | Outpatient (CLI) | payer MEDICARE, MEDICAID, SELFPAY ==
[2024-08-08 08:44] LABS: Basophils % 0.3 %; Eosinophils # 0.2 10^3/uL (0.0-0.8); Eosinophils % 2.3 %; Hematocrit 41.3 % (36-47); Lymphocytes # 2.2 10^3/uL (0.8-4.8); Lymphocytes % 31.5 %; Mean Corpuscular HGB Conc 32.7 g/dL (30-55); Mean Corpuscular Hemoglobin 31.6 pg (27-33); Mean Corpuscular Volume 96.7 fl (85-98); Monocytes # 0.6 10^3/uL (0.2-0.9); Monocytes % 8.2 %; Neutrophils # 4.07 10^3/uL (1.8-7.7); Neutrophils % 57.3 %; Nucleated Red Blood Cells % 0 %; Platelet Count 279 10^3/cmm (157-399); Red Blood Count 4.27 10^6/uL (3.85-5.65); White Blood Count 7.09 10^3/uL (3.29-11.43)
[2024-08-08 09:00] LABS: INR 2.21 (0.8-1.2)
[2024-08-08 09:13] LABS: Anion Gap 17.3 (5-19); Blood Urea Nitrogen 31 mg/dL (8-23); Calcium 9.6 mg/dL (8.5-10.5); Carbon Dioxide 23 mmol/L (22-29); Chloride 107 mmol/L (98-107); Chol HDL Ratio 3.32 mg/dL (0.0-4.40); Cholesterol 136 mg/dL (0-200); Glucose 118 mg/dL (65-115); HDL Cholesterol 41 mg/dL (60-100); LDL Cholesterol Calculated 59 mg/dL (50-129); LDL HDL Ratio 1.44 RATIO (0.00-3.22); NT Pro B Type Natriuretic Pept 413 pg/mL (0-450); Osmolality Calculated 302 mOsm/kg (285-295); Potassium 5.3 mmol/L (3.5-5.1); Sodium 142 mmol/L (136-145); Thyroid Stimulating Hormone 2.09 uIU/mL (0.27-4.20); Triglycerides 180 mg/dL (0-150)
[2024-08-09 13:31] LABS: Estmated Average Glucose 134; Hemoglobin A1C 6.3 % (4.0-6.0)
== END 2024-08-08 07:48 | disposition home or self-care (01) ==
PROVIDERS: PCP Nurse Practitioner Family; Visit Provider Nurse Practitioner Family
DX: D68.51 Activated protein C resistance (principal); E78.5 Hyperlipidemia, unspecified; R73.03 Prediabetes; Z86.718 Personal history of other venous thrombosis and embolism
CPT/HCPCS: 36415; 80048; 80061; 83036; 83880; 84443; 85025; 85610

== ENCOUNTER → 2024-08-10 09:28 | Outpatient (BNVA) | payer MEDICARE, MEDICAID, SELFPAY | PROVIDERS: PCP Nurse Practitioner Family; Visit Provider Nurse Practitioner Family | DX: I11.0 Hypertensive heart disease with heart failure (principal); I50.30 Unspecified diastolic (congestive) heart failure; I48.21 Permanent atrial fibrillation; I35.0 Nonrheumatic aortic (valve) stenosis; E87.5 Hyperkalemia | CPT/HCPCS: 99214 ==

== ENCOUNTER 2024-09-05 08:01 | Outpatient (CLI) | payer MEDICARE, MEDICAID, SELFPAY ==
[2024-09-05 09:31] LABS: INR 2.50 (0.8-1.2); Prothrombin Time 28.50 SECONDS (12.1-14.9)
== END 2024-09-05 08:02 | disposition home or self-care (01) ==
LOC: LAB 08:07
PROVIDERS: PCP Nurse Practitioner Family; Visit Provider Nurse Practitioner Family
DX: D68.51 Activated protein C resistance (principal); Z86.718 Personal history of other venous thrombosis and embolism
CPT/HCPCS: 36415; 85610

== ENCOUNTER 2024-10-03 07:37 | Outpatient (CLI) | payer MEDICARE, MEDICAID, SELFPAY ==
[2024-10-03 09:27] LABS: INR 2.08 (0.8-1.2); Prothrombin Time 24.60 SECONDS (12.1-14.9)
== END 2024-10-03 07:38 | disposition home or self-care (01) ==
PROVIDERS: PCP Nurse Practitioner Family; Visit Provider Nurse Practitioner Family
DX: D68.51 Activated protein C resistance (principal); Z86.718 Personal history of other venous thrombosis and embolism
CPT/HCPCS: 85610

== ENCOUNTER 2024-10-31 12:12 | Outpatient (CLI) | payer MEDICARE, MEDICAID, SELFPAY ==
[2024-10-31 13:06] LABS: INR 2.05 (0.8-1.2); Prothrombin Time 24.40 SECONDS (12.1-14.9)
== END 2024-10-31 12:13 | disposition home or self-care (01) ==
LOC: LAB 12:13
PROVIDERS: PCP Nurse Practitioner Family; Visit Provider Nurse Practitioner Family
DX: Z86.718 Personal history of other venous thrombosis and embolism (principal); D68.51 Activated protein C resistance
CPT/HCPCS: 36415; 85610

== ENCOUNTER 2024-11-29 07:59 | Outpatient (CLI) | payer MEDICARE, MEDICAID, SELFPAY ==
[2024-11-29 08:58] LABS: INR 2.34 (0.8-1.2); Prothrombin Time 27.00 SECONDS (12.1-14.9)
== END 2024-11-29 08:00 | disposition home or self-care (01) ==
PROVIDERS: PCP Nurse Practitioner Family; Visit Provider Nurse Practitioner Family
DX: Z86.718 Personal history of other venous thrombosis and embolism (principal); D68.51 Activated protein C resistance
CPT/HCPCS: 36415; 85610

== ENCOUNTER 2024-12-26 07:36 | Outpatient (CLI) | payer MEDICARE, MEDICAID, SELFPAY ==
[2024-12-26 08:42] LABS: Anion Gap 15.7 (5-19); Blood Urea Nitrogen 40 mg/dL (8-23); Calcium 9.6 mg/dL (8.5-10.5); Carbon Dioxide 24 mmol/L (22-29); Chloride 106 mmol/L (98-107); Glucose 117 mg/dL (65-115); Osmolality Calculated 303 mOsm/kg (285-295); Potassium 4.7 mmol/L (3.5-5.1); Sodium 141 mmol/L (136-145)
[2024-12-26 08:46] LABS: INR 2.38 (0.8-1.2); Prothrombin Time 27.40 SECONDS (12.1-14.9)
[2024-12-27 15:56] LABS: Estmated Average Glucose 123; Hemoglobin A1C 5.9 % (4.0-6.0)
== END 2024-12-26 07:37 | disposition home or self-care (01) ==
PROVIDERS: PCP Nurse Practitioner Family; Visit Provider Nurse Practitioner Family
DX: R73.03 Prediabetes (principal); Z86.718 Personal history of other venous thrombosis and embolism; D68.51 Activated protein C resistance; Z79.01 Long term (current) use of anticoagulants
CPT/HCPCS: 36415; 80048; 83036; 85018; 85610

== ENCOUNTER 2025-01-24 08:26 | Outpatient (CLI) | payer MEDICARE, MEDICAID, SELFPAY ==
[2025-01-24 09:13] LABS: INR 2.09 (0.8-1.2); Prothrombin Time 24.70 SECONDS (12.1-14.9)
== END 2025-01-24 08:27 | disposition home or self-care (01) ==
LOC: LAB 08:29
PROVIDERS: PCP Nurse Practitioner Family; Visit Provider Nurse Practitioner Family
DX: D68.51 Activated protein C resistance (principal)
CPT/HCPCS: 36415; 85610

== ENCOUNTER 2025-02-21 08:02 | Outpatient (CLI) | payer MEDICARE, MEDICAID, SELFPAY ==
[2025-02-21 09:39] LABS: INR 1.97 (0.8-1.2); Prothrombin Time 23.60 SECONDS (12.1-14.9)
== END 2025-02-21 08:03 | disposition home or self-care (01) ==
LOC: LAB 08:06
PROVIDERS: PCP Nurse Practitioner Family; Visit Provider Nurse Practitioner Family
DX: Z86.718 Personal history of other venous thrombosis and embolism (principal); D68.51 Activated protein C resistance; Z79.01 Long term (current) use of anticoagulants
CPT/HCPCS: 36415; 85610